=== PATIENT | male | born 1960 | race Caucasian/White ===

== ENCOUNTER 2022-08-02 17:43 | Inpatient (IN) | payer OTHER ==
[~2022-08-02] VITALS: Ht 170.2 cm; Wt 83.7 kg
[~2022-08-02 17:43] MED LIST changes: -ACET325 PO; -HUMALOG JU100 UNIT/2 SC; -INSULANPEN; -MESA250ER PO; -Norco 5-325 Ta1 EACH PO; -OMEGA-3-FISH O1 EAC3 PO; -OMEP20ER PO
[2022-08-02] MEDS ORDERED: INSULANPEN (18:02)
[2022-08-02 18:37] LABS: Base Excess Venous -14.3 mmol/L; Bicarbonate Venous 14.4 mmol/L (24.0-30.0); PCO2 Venous 32.2 mmHg (38-42)
[2022-08-02 18:40] LABS: pH Blood Venous 7.23 (7.34-7.37)
[2022-08-02 20:10] LABS: Potassium, Blood 4.4 mmol/L (3.5-5.5)
[2022-08-02 20:11] LABS: Albumin, Blood 3.1 g/dL (3.4-5.0); Albumin/Globulin Ratio 0.8 (0.8-1.8); Bilirubin, Total 0.3 mg/dL (0.1-1.0); Bun/Creatinine Ratio 20.5 (12.0-20.0); Calcium, Blood 8.4 mg/dL (8.5-10.1); Creatinine, Blood 0.73 mg/dL (0.60-1.20); Globulin, Blood 3.9 g/dL (2.2-4.0)
[2022-08-02 20:16] LABS: Beta-hydroxybutyrate 51.5 mg/dL (0.2-2.8)
[2022-08-02] MEDS ORDERED: OMEP20ER PO (22:22)
[2022-08-02] MEDS ORDERED: MESA250ER PO (22:24)
[2022-08-03 00:46] LABS: BASOPHILS ABSOLUTE AUTO 0.04 K/mm3 (0.00-0.23); BASOPHILS PERCENT AUTO 1 % (0-2); EOSINOPHILS ABSOLUTE AUTO 0.11 K/mm3 (0.00-0.68); EOSINOPHILS PERCENT AUTO 2 % (0-6); Hemoglobin 12.5 g/dL (13.5-17.5); IMMATURE GRAN ABSOLUTE AUTO 0.09 K/mm3 (0.00-0.10); IMMATURE GRAN PERCENT AUTO 2 % (0-1); LYMPHOCYTES ABSOLUTE AUTO 1.23 K/mm3 (0.84-5.20); LYMPHOCYTES PERCENT AUTO 23 % (21-46); MONOCYTES ABSOLUTE AUTO 0.32 K/mm3 (0.16-1.47); MONOCYTES PERCENT AUTO 6 % (4-13); Mean Corpuscular HGB 29.5 pg (26.0-34.0); Mean Corpuscular HGB Conc 34.7 g/dL (31.5-36.5); Mean Corpuscular Volume 85 fL (80-100); Mean Platelet Volume 10.7 fL (9.1-12.4); NEUTROPHILS ABSOLUTE AUTO 3.56 K/mm3 (1.96-9.15); NEUTROPHILS PERCENT AUTO 67 % (41-73); Platelet Count 236 K/mm3 (150-400); Red Blood Cell Count 4.24 M/mm3 (4.30-5.90); White Blood Cell Count 5.35 K/mm3 (4.00-11.30)
[2022-08-03 00:57] LABS: Triglycerides >4000 mg/dL (30-160); Very Low Density Lipoprot Chol Unable to Calculate mg/dL (6-32)
[2022-08-03 01:21] LABS: Alanine Aminotransfer (ALT/SGP 29 U/L (12-78); Albumin, Blood 2.8 g/dL (3.4-5.0); Albumin/Globulin Ratio 0.8 (0.8-1.8); Alk Phos 110 U/L (50-136); Anion Gap 14 mmol/L (6-16); Aspartate Aminotrans (AST/SGOT 12 U/L (12-37); Bilirubin, Total 0.2 mg/dL (0.1-1.0); Blood Urea Nitrogen 16 mg/dL (8-24); Bun/Creatinine Ratio 21.7 (12.0-20.0); CHOL/HDL RATIO 10.9; CO2, Blood 12 mmol/L (21-32); Calcium, Blood 8.3 mg/dL (8.5-10.1); Chloride, Blood 106 mmol/L (98-108); Cholesterol 456 mg/dL (50-200); Creatinine, Blood 0.74 mg/dL (0.60-1.20); Globulin, Blood 3.7 g/dL (2.2-4.0); Glomerular Filtration Rate 104 (60-); Glucose, Blood 367 mg/dL (70-99); LDL/HDL RATIO Unable to Calculate; Potassium, Blood 4.5 mmol/L (3.5-5.5); Sodium, Blood 132 mmol/L (136-145); Total Protein, Blood 6.5 g/dL (6.4-8.2)
[2022-08-03 01:22] LABS: Low Density Lipoprotein Chol 205 mg/dL (0-110)
[2022-08-03 02:26] LABS: Source, Urine Clean Catch
[2022-08-03 02:29] LABS: Bilirubin, Urine Neg (Neg); Blood, Urine 1+ (Neg); Glucose Qualitative, Urine 4+ (Neg); Ketones, Urine 4+ (Neg); Leukocyte Esterase, Urine Neg (Neg); Nitrite, Urine Neg (Neg); Protein, Urine Neg (Neg); Urobilinogen, Urine NORM (Normal)
[2022-08-03 02:34] LABS: Appearance, Urine Clear (Clear); Color, Urine Yellow (P-Yellow)
[2022-08-03 02:48] LABS: Bacteria Not Seen /hpf; Squamous Epithelial Cells Not Seen /hpf (Few); White Blood Cells, Urine Not Seen /hpf (0-5)
--- NOTE | 2022-08-03 03:49 | NUR ---
RECIEVED PATIENT FROM THE ED, ALERT AND ORIENTED X4, COOPERATIVE WITH CARE, INDEPENDENT IN ROOM AND CONT. STARTED ON NA BICARB INFFUSION AT 100. ABD PAIN FROM PATIENTS STATES CROHNS FLARE UP TREATED PER AUG. IV INSULIN ORDERED AND PATIENT TRANSFERED TO ER, REPORT GIVEN AND BELONGINGS WITH PATIENT.
[2022-08-03 04:37] LABS: Albumin, Blood 2.8 g/dL (3.4-5.0); Albumin/Globulin Ratio 0.8 (0.8-1.8); Bilirubin, Total 0.3 mg/dL (0.1-1.0); Calcium, Blood 8.4 mg/dL (8.5-10.1); Creatinine, Blood 0.58 mg/dL (0.60-1.20); Globulin, Blood 3.6 g/dL (2.2-4.0); Potassium, Blood 4.3 mmol/L (3.5-5.5); Total Protein, Blood 6.4 g/dL (6.4-8.2)
--- NOTE | 2022-08-03 04:47 | NUR ---
TRANSFER TO ICU 9: PT TRANSFERRED FROM MEDICAL FLOOR TO ICU 9 @ 0343 VIA WHEELCHAIR. PT ABLE TO TRANSFER FROM WHEELCHAIR TO BED INDEPENDENTLY; GAIT STEADY AND EVEN. PT IS A&O, PLEASANT AND COOPERATING WITH CARE. PT ON RA WHEN ARRIVED TO UNIT WITH SPO2 94<. PT ON CONTINUOUS SYSTEMS SOFTWARE SPECIALIST WITH HR 80'S AND SBP 150'S; NO C/O CHEST PAIN OR SOB AT THIS TIME. PT HAS OBESE ABD THAT IS TENDER UPON PALPATION R/T CHROHNS DX, PT STATES THAT PAIN IS COMING DOWN AND STATES 4/10 PAIN; PT MEDICATED WITH MORPHINE PRIOR TO COMING TO UNIT. PTCONTINENT OF VOIDING/ELIMINATION AND PERFORMING ADL'S INDEPENDENTLY. TWO PIV, 22 G RAC AND RFA. INSULIN GTT @ 2 UNITS/HR AND BICARB GTT @ 100 MLS/HR. PPP X 4; SKIN INTACT AND WARM. PT HAS DEFORMED SECOND TOE ON R. FOOT THAT HE STATES IS FROM HIS NEUROPATHY PATHOLOGY. PT SLEEPING NOW, USING CALL LIGHT APPROPRIATELY, BED LOWERED, WILL CONTINUE TO MONITOR.
--- NOTE | 2022-08-03 06:46 | NUR ---
SHIFT SUMMARY: NO ACUTE CHANGES THIS SHIFT. VSS THROUGHOUT THE SHIFT. PT CURRENTLY ON INSULIN GTT @ 2 UNITS/HR; PER DR ALEA STEVEN GTT PUT ON STANDBY WITH CBG LESS THAN 200, AND D5 1/2 NS GTT STARTED AT 75 MLS/HR. PROVIDER WANTS CBG TO BE MAINTAINED BETWEEN 200-250. WILL CONTINUE TO MONITOR UNTIL ONCOMING RN ARRIVES.
--- NOTE | 2022-08-03 07:15 | NUR ---
Assumed care of ICU status patient at 0700. Report received from Lexus IZQUIERDO. Pt is A&O x 4. Answers questions, follows commands, verbalizes needs. Pleasant and cooperative with care. On insulin drip at 2 units/hr for hypertryglyceridemia. SR per monitor. BP stable. Room air.
--- NOTE | 2022-08-03 09:30 | NUR ---
Dr Quintero in to see patient. Discussed that pt is experiencing intolerable pain with current regimen of morphine. Changed from Q6 availability to Q4 availability. Plan to check additional tryglyceride levels with ordered BMPs.
[2022-08-03 11:25] LABS: Anion Gap 8 mmol/L (6-16); Blood Urea Nitrogen 11 mg/dL (8-24); Bun/Creatinine Ratio 19.2 (12.0-20.0); CO2, Blood 21 mmol/L (21-32); Calcium, Blood 8.6 mg/dL (8.5-10.1); Chloride, Blood 105 mmol/L (98-108); Creatinine, Blood 0.57 mg/dL (0.60-1.20); Glomerular Filtration Rate 112 (60-); Glucose, Blood 260 mg/dL (70-99); Potassium, Blood 3.8 mmol/L (3.5-5.5)
--- NOTE | 2022-08-03 15:30 | NUR ---
Plan of care discussed with Dr Barrera. Pt is experiencing relief and comfort with changed pain med regimen. Discussed most recent labs. Provider states that insulin drip may be continued and subcutaneous insulin will begin. Pt reports taking 20 units of lantus per day. Additional, pt may be transferred to medical floor and telemetry can be removed.
--- NOTE | 2022-08-03 17:39 | NUR ---
SUMMARY Transferred to ICU 3. Pt is medical floor status without telemetry. Neuro/Musc/Psych/Educ: A&O x 4. Answers questions, follows commands, verbalizes needs. Pleasant and cooperative with care. Independent in room. Ambulated from room 9 to room 3 for transfer. No family in to see pt today or inquire about update. Pt states he recently moved here from [place], [place]. Currently lives at the [facility]. Pt is receptive to all education provided. Seems to have better than average health literacy regarding current disease process and medication regimen/care of his chronic conditions. Pain: States he has chronic pain from chrons. This is managed with mesalamine, however he has been having difficulty accessing this medication since he moved to [place] due to insurance restrictions. The pain that he is experiencing reportly started about 1 week ago. He states that he feels the pain is improving compared to when he first came into ER. Reports relief from pain with administration of morphine. Resp: Occasionally requires 2 LPM NC while sleeping. No bradypnea or hypoventilation with administration of morphine. Card: Pt is no longer monitored with telemetry. VSS. No edmea. Cap refill and distal pulses WNL. GI: Guaic ordered. No BM yet this shift. : Excellent urine output into urinal Skin: Unchanged from initial assessment.
[2022-08-03 17:44] LABS: Anion Gap 7 mmol/L (6-16); CO2, Blood 22 mmol/L (21-32); Chloride, Blood 99 mmol/L (98-108); Creatinine, Blood 0.24 mg/dL (0.60-1.20); Glomerular Filtration Rate 146 (60-); Potassium, Blood 3.9 mmol/L (3.5-5.5); Sodium, Blood 128 mmol/L (136-145)
[2022-08-03 17:46] LABS: Glucose, Blood 370 mg/dL (70-99)
[2022-08-03 17:47] LABS: Bun/Creatinine Ratio Unable to Calculate (12.0-20.0)
[2022-08-03 17:48] LABS: Triglycerides >4000 mg/dL (30-160)
--- NOTE | 2022-08-03 18:07 | NUR ---
Lab called this RN to notify that BUN and calcium could not be reported due to severe lipemia in specimen. La from lab also reported that previous triglyceride result of [address] Quintero. Pt transferred back to ICU status and insulin drip to be restarted. Discussed that pt has already received glargine. Plan to start insulin at lowest dose and D5 1/2 NS will start at 100 mL/hr.
[2022-08-03 18:10] LABS: Sodium, Blood 134 mmol/L (136-145)
[2022-08-03 18:14] LABS: Triglycerides >4000 mg/dL (30-160)
--- NOTE | 2022-08-03 19:15 | NUR ---
ASSUMPTION OF CARE ASSUMED CARE OF PATIENT @ 1915. A/0 X4. REPORTS ABDOMINAL PAIN WELL CONTROLLED WITH MORPHINE. 2L NC. HEMODYNAMICALLY STABLE. SR ON MONITOR. INSULIN GTT CURRENTLY INFUSING AT 1U/HR. CALL LIGHT WITHIN REACH.
[2022-08-03 22:21] LABS: Anion Gap 7 mmol/L (6-16); Bun/Creatinine Ratio Unable to Calculate (12.0-20.0); CO2, Blood 21 mmol/L (21-32); Chloride, Blood 103 mmol/L (98-108); Creatinine, Blood <0.14 mg/dL (0.60-1.20); Glucose, Blood 418 mg/dL (70-99); Potassium, Blood 3.3 mmol/L (3.5-5.5); Sodium, Blood 131 mmol/L (136-145); Triglycerides >4000 mg/dL (30-160)
[2022-08-04 04:29] LABS: Anion Gap 5 mmol/L (6-16); CO2, Blood 23 mmol/L (21-32); Chloride, Blood 101 mmol/L (98-108); Creatinine, Blood 1.05 mg/dL (0.60-1.20); Glomerular Filtration Rate 81 (60-); Glucose, Blood 330 mg/dL (70-99); Potassium, Blood 3.9 mmol/L (3.5-5.5); Sodium, Blood 129 mmol/L (136-145)
[2022-08-04 04:30] LABS: Bun/Creatinine Ratio Unable to Calculate (12.0-20.0); Triglycerides >4000 mg/dL (30-160)
--- NOTE | 2022-08-04 06:07 | NUR ---
SHIFT SUMMARY NEURO: INTACT. A/0 X4. COOPERATIVE. PERRL. GRIFFIN. CV: SR, HR 70-80S AT REST. WITH ACTIVITY/UP TO SIDE TO BED, HR 120-130S. SBP 120-150S. AFEBRILE. PULM: 2L NC WHILE SLEEPING. LUNGS CTA. RESPIRATIONS EVEN, UNLABORED. RR 16-20. GI: TOLERATING PO INTAKE. STILL COMPLAINING OF ABDOMINAL PAIN INTERMITTENTLY; CONTROLLED WITH MORPHINE, SEE MAR. + FLATUS. NO BM OVERNIGHT. : POLYURIA. URINE OUTPUT ~7L OVER LAST 24 HOURS. PATIENT CONTINUES ON INSULIN DRIP FOR MANAGEMENT OF ELEVATED TRYGLYCERIDES. LAST TRYGLYCERIDES STILL >4000. DR WINCHESTER CONTACTED OVERNIGHT REGARDING HYPOKALEMIA; REPLACED WITH 40MEQ ORAL K AND 20MEQ IV K. PATIENT RESTING COMFORTABLY AT THIS TIME. CALL LIGHT WITHIN REACH.
--- NOTE | 2022-08-04 08:27 | NUR ---
ASSUMED CARE REPORT FROM SUSAN IZQUIERDO AT 0700. PT RESTING IN BED. A&OX 4. FOLLOWS COMMANDS, ANSWERS QUESTIONS APPROPRIATELY. C/O ABD PAIN, MEDICATED c TYLENOL. LUNGS CLEAR, ON RA. SR ON MONITOR, RATE 80'S. BP STABLE. PT P/W/D. ABD ROUND, SOFT, GENERALIZED TENDERNESS, BTX 4. LARGE APPETITE. DENIES N/V/D. INDEPENDENT IN ROOM. INSULIN GTT AND D5 1/2NS INFUSING AT 100 ML/HR. SHORT AND LONG ACTING INSULIN GIVEN. CBG TRENDING IN 200'S. PIV X 2. WILL CONTINUE TO MONITOR.
[2022-08-04 11:10] LABS: Anion Gap 5 mmol/L (6-16); Bun/Creatinine Ratio Unable to Calculate (12.0-20.0); CO2, Blood 24 mmol/L (21-32); Chloride, Blood 100 mmol/L (98-108); Creatinine, Blood 0.38 mg/dL (0.60-1.20); Glomerular Filtration Rate 127 (60-); Glucose, Blood 401 mg/dL (70-99); Potassium, Blood 3.9 mmol/L (3.5-5.5); Sodium, Blood 129 mmol/L (136-145); Triglycerides 3806 mg/dL (30-160)
[2022-08-04 12:42] LABS: Percent Saturation 42.6 % (20.0-50.0)
[2022-08-04 17:26] LABS: Anion Gap 4 mmol/L (6-16); Bun/Creatinine Ratio Unable to Calculate (12.0-20.0); CO2, Blood 26 mmol/L (21-32); Chloride, Blood 99 mmol/L (98-108); Glomerular Filtration Rate 136 (60-); Glucose, Blood 305 mg/dL (70-99); Potassium, Blood 3.8 mmol/L (3.5-5.5); Sodium, Blood 129 mmol/L (136-145)
[2022-08-04 17:27] LABS: Triglycerides >4000 mg/dL (30-160)
--- NOTE | 2022-08-04 17:44 | NUR ---
SHIFT SUMMARY NO ACUTE CHANGES THIS SHIFT. REMAINS ON INSULIN GTT. IVF CHANGED TO D5 NS, INFUSING AT 100 ML/HR. CONTINUED q6 BMP AND TRIGLYCERIDES. NEURO WNL. LUNGS CLEAR. SR, RATE 80'S. BP STABLE. LARGE APPETITE, ENCOURAGED HEALTHY CHOICES. INDEPENDENT IN ROOM. USES URINAL AT BEDSIDE. WILL CONTINUE TO MONITOR UNTIL REPORT TO ONCOMING NURSE.
--- NOTE | 2022-08-04 19:20 | NUR ---
ASSUMED CARE OF PT AT 1900 PT SLEEPING IN ROOM AT THIS TIME WITH NO VISITORS. PT IS ABLE TO GET UP TO USE URINAL AT BEDSIDE ALONE. BED IN LOW POSITION, CALL LIGHT WITHIN REACH. INSULIN @ 3 UNITS/HR D5WNS @ 100 MLS/HR BP AND HR STABLE AND WNL. SPO2 >92% ON 2LMP NC. SEE FULL ASSESSMENT FOR FURTHER INFORMATION.
[2022-08-04 23:08] LABS: Anion Gap 4 mmol/L (6-16); CO2, Blood 24 mmol/L (21-32); Chloride, Blood 101 mmol/L (98-108); Creatinine, Blood 0.27 mg/dL (0.60-1.20); Glomerular Filtration Rate 141 (60-); Glucose, Blood 397 mg/dL (70-99); Sodium, Blood 129 mmol/L (136-145)
[2022-08-04 23:09] LABS: Bun/Creatinine Ratio Unable to Calculate (12.0-20.0)
[2022-08-04 23:11] LABS: Triglycerides >4000 mg/dL (30-160)
[2022-08-05 04:53] LABS: Anion Gap 4 mmol/L (6-16); Blood Urea Nitrogen 11 mg/dL (8-24); Bun/Creatinine Ratio 36.2 (12.0-20.0); CO2, Blood 23 mmol/L (21-32); Chloride, Blood 105 mmol/L (98-108); Glomerular Filtration Rate 136 (60-); Glucose, Blood 293 mg/dL (70-99); Sodium, Blood 132 mmol/L (136-145); Triglycerides 3535 mg/dL (30-160)
[2022-08-05 04:58] LABS: Potassium, Blood 3.8 mmol/L (3.5-5.5)
--- NOTE | 2022-08-05 05:51 | NUR ---
END OF SHIFT SUMMARY PT RESTED INTERMITENTLY THROUGHOUT THE NIGHT. A/O X4. C/O HEADACHE, PRN TYLENOL SUFFICIENT. C/O STOMACH PAIN, PRN MORPHINE SUFFICIENT. RESP- 2LMP NC FOR PT COMFORT WITH CONSISTENT 95% SPO2. LUNG SOUNDS CLEAR BILATERALLY THROUGHOUT. CARDIAC- SR, SBP 130'S, HR 80'S. GI, - NO BM THIS SHIFT. PT FREQUENTLY STANDS AT BEDSIDE WITH URINAL THROUGHOUT THE NIGHT. SIGNIFICANT OUTPUT NOTED IN I/O NOTATIONS. PT INSISTS ON DRINKING DIET SODA. WATER AT BEDSIDE HAS NOT BEEN TOUCHED THIS SHIFT. PT WAS EDUCATED ON FOODS THAT HE WAS REQUESTING TO BE HIGH IN FAT, REGARDLESS OF SUGAR CONTENT. PT SHOWS UNDERSTANDING WITH COMMUNICATION WITH THIS RN. INSULIN DRIP AT 1 UNIT D5WNS @ 100 MLS/HR TKO @ 10 MLS/HR. CONSULT TO CDA TEACHER INITIATED D/T THE PATIENTS STRESS OF PROPER HOUSING AND FOOD SOURCES, ALONG WITH SAFE KEEPING OF IMPORTANT MEDICATIONS. PT STATES THAT HE IS ON A HOUSING WAIT LIST AND IS TO BE RECIEVED SOCIAL SECURITY BENEFITS SOON. PT IS ALSO REQUESTING TO STAY AT THE HOSPITAL UNTIL SAFE HOUSING CAN BE PROVIDED. THIS RN COUNSELED THE PT ON CDA TEACHER PROVIDING INFORMATION ON COMMUNITY SERVICES AND SHOULD BE IN BEFORE DISCHARGE TO DISCUSS OPTIONS AND RESOURCES AVAILABLE. WILL CONTINUE TO MONITOR PT UNTIL REPORT GIVEN TO AM RN.
--- NOTE | 2022-08-05 09:15 | NUR ---
ASSUMED CARE / DR BREWER: REPORT RECEIVED FROM STUART Meraz RN. ASSUMED CARE OF THIS PT AT APPROX 0700. ON ASSESSMENT, THE PT IS RESTING QUIETLY & AWAKENS EASILY TO VERBAL STIMULUS. HE IS A&O TO ALL, STS HAVING CHRONIC CRAMPING PAIN IN HIS STOMACH R/T CROHN's DX. LS DIM, RESPIRATIONS SHALLOW. PT ON 2L NC W/ O2 SATS > 92%. MONITOR SHOWS SR W/ HR 60-70s, BP STABLE. ABD MILDLY DISTENDED, PT STS NORMAL. VOIDS URINE W/O DIFFICULTY USING URINAL. SKIN CONDITION OVERALL INTACT, PT REPOSITIONS SELF FOR COMFORT PRN. DR BREWER AT BEDSIDE THIS AM TO EVAL PT. SHE WOULD LIKE TO DISCHARGE THE PT THIS AFTERNOON IF BARRIERS TO RECEIVING MEDICATION THROUGH INSURANCE CAN BE APPROPRIATELY DEALT WITH. ALEJANDRO, SUPERVISING DEPUTY RN, HAS SPOKEN W/ THE PT & PROVIDER & IS ATTEMPTING TO FACILITATE THE PT RECEIVING HIS MEDICATIONS. PROVIDER ORDERS THAT INSULIN DRIP & D5NS BE DISCONTINUED, CONTINUE CBG COVERAGE W/ LISPRO & LANTUS. TRANSFER ORDERS PLACED, PT IS NOW MEDICAL STATUS, NO TELE. PO PAIN MEDICATIONS ORDERED & IV PAIN MEDS SHOULD BE AVOIDED W/ GOAL OF DISCHARGING PT BACK [facility]. NO OTHER CHANGES AT THIS TIME. WILL CONTINUE TO MONITOR & UPDATE NEEDED.
--- NOTE | 2022-08-05 11:31 | NUR ---
TRANSFER TO MEDICAL FLOOR: REPORT HAS BEEN GIVEN TO ELENA Deshpande RN ON MED FLOOR TO ASSUME CARE. THE PT HAS BEEN TAKEN TO ROOM 338 VIA WC BY WINSTON BAUTISTA, AT APPROX 1130. CHART, MEDS & ALL BELONGINGS HAVE BEEN TAKEN UP W/ PT AT THIS TIME.
[2022-08-05 11:45] LABS: Anion Gap 4 mmol/L (6-16); Blood Urea Nitrogen 9 mg/dL (8-24); Bun/Creatinine Ratio 25.8 (12.0-20.0); CO2, Blood 25 mmol/L (21-32); Chloride, Blood 102 mmol/L (98-108); Creatinine, Blood 0.35 mg/dL (0.60-1.20); Glomerular Filtration Rate 130 (60-); Glucose, Blood 431 mg/dL (70-99); Sodium, Blood 131 mmol/L (136-145); Triglycerides 2969 mg/dL (30-160)
--- NOTE | 2022-08-05 11:51 | NUR ---
TRANSFER NOTE PT TRANSFERRED FROM THE ICU. REPORT RECEIVED FROM TIMBO JAY.
[2022-08-05] MEDS ORDERED: ACET325 PO (13:54)
[2022-08-05] MEDS ORDERED: Norco 5-325 Ta1 EACH PO (13:57)
[2022-08-05] MEDS ORDERED: HUMALOG JU100 UNIT/2 SC (13:58)
[2022-08-05] MEDS ORDERED: OMEGA-3-FISH O1 EAC3 PO (14:08)
--- NOTE | 2022-08-05 15:10 | NUR ---
DISCHARGE NOTE PT LEFT FOR HOME BY [facility], TAKEN TO THE [facility] BY WHEELCHAIR. BOTH IV'S REMOVED. PT PROVIDED DISCHARGE INFORMATION AND EDUCATION. MEDICATIONS FAXED TO THE PHARMACY OF HIS CHOICE. PERSONAL BELONGINGS WERE RETURNED.
== END 2022-08-05 15:28 | disposition home or self-care (01) | DRG 385 ==
LOC: ER 17:43 → ICUE 17:44 → MEDS 17:44 → ICUW 08-03 03:39 → ICUE 08-03 12:23 → MEDS 08-05 11:29
PROVIDERS: Emergency Medicine; Internal Medicine; ADMIT Internal Medicine
DX: K50.90 Crohn's disease, unspecified, without complications (principal); E10.10 Type 1 diabetes mellitus with ketoacidosis without coma; E87.1 Hypo-osmolality and hyponatremia; E86.0 Dehydration; E78.00 Pure hypercholesterolemia, unspecified; K21.9 Gastro-esophageal reflux disease without esophagitis; E78.1 Pure hyperglyceridemia; E10.65 Type 1 diabetes mellitus with hyperglycemia; D64.9 Anemia, unspecified; J45.909 Unspecified asthma, uncomplicated; Z98.890 Other specified postprocedural states; Z88.5 Allergy status to narcotic agent; Z79.4 Long term (current) use of insulin; Z59.00 Homelessness unspecified; Z91.038 Other insect allergy status; Z87.891 Personal history of nicotine dependence; Z79.899 Other long term (current) drug therapy
CPT/HCPCS: 36415; 80048; 80053; 80061; 81001; 82010; 82607; 82728; 82746; 82803; 82947; 83540; 83550; 83690; 83880; 84478; 85025; 94762; 96374; 99285-25; A9270; J1650; J1815; J1885; J2270; J2405; J3010; J3480; J7030; J7042; J7050

== ENCOUNTER → 2022-08-02 | Outpatient (CLI) | payer OTHER ==
[~2022-08-02] MED LIST: ACET325 PO; HUMALOG JU100 UNIT/2 SC; INSULANPEN; MESA250ER PO; METF500 PO; Norco 5-325 Ta1 EACH PO; OMEGA-3-FISH O1 EAC3 PO; OMEP20ER PO; OMEP40CA12 PO
[2022-08-02 13:26] LABS: Albumin, Blood 3.6 g/dL (3.4-5.0); Albumin/Globulin Ratio 0.8 (0.8-1.8); Bilirubin, Total 0.4 mg/dL (0.1-1.0); Bun/Creatinine Ratio 20.1 (12.0-20.0); Calcium, Blood 9.2 mg/dL (8.5-10.1); Creatinine, Blood 0.8 mg/dL (0.60-1.20); Globulin, Blood 4.8 g/dL (2.2-4.0); Potassium, Blood 4.2 mmol/L (3.5-5.5); Total Protein, Blood 8.4 g/dL (6.4-8.2)
[2022-08-02 14:16] LABS: BASOPHILS ABSOLUTE AUTO 0.05 K/mm3 (0.00-0.23); BASOPHILS PERCENT AUTO 1 % (0-2); EOSINOPHILS PERCENT AUTO 2 % (0-6); Hematocrit 39.5 % (37.0-53.0); Hemoglobin 13.2 g/dL (13.5-17.5); Mean Corpuscular HGB 28.5 pg (26.0-34.0); Mean Corpuscular HGB Conc 33.4 g/dL (31.5-36.5); Mean Corpuscular Volume 85 fL (80-100); Mean Platelet Volume 11.6 fL (9.1-12.4); NRBC ABSOLUTE 0.05 K/mm3 (0.00-0.02); NRBC Auto 0.7 /100 WBC (0.0-0.2); RDW Coefficient Variation 16.2 % (11.7-14.2); RDW Standard Deviation 50.5 fL (35.1-46.3); Red Blood Cell Count 4.63 M/mm3 (4.30-5.90); White Blood Cell Count 6.85 K/mm3 (4.00-11.30)
[2022-08-02 14:20] LABS: IMMATURE GRAN ABSOLUTE AUTO 0.13 K/mm3 (0.00-0.10); IMMATURE GRAN PERCENT AUTO 2 % (0-1); LYMPHOCYTES ABSOLUTE AUTO 1.38 K/mm3 (0.84-5.20); LYMPHOCYTES PERCENT AUTO 20 % (21-46); MONOCYTES ABSOLUTE AUTO 0.43 K/mm3 (0.16-1.47); MONOCYTES PERCENT AUTO 6 % (4-13); NEUTROPHILS ABSOLUTE AUTO 4.76 K/mm3 (1.96-9.15); NEUTROPHILS PERCENT AUTO 70 % (41-73)
[2022-08-02 14:22] LABS: Platelet Count 357 K/mm3 (150-400)
== END | disposition home or self-care (01) ==
LOC: LAB SHORT 12:09 → LAB 12:09
PROVIDERS: Physician Assistant
DX: R10.84 Generalized abdominal pain (principal)
CPT/HCPCS: 80053; 83690; 85025

== ENCOUNTER 2022-08-08 10:07 | Emergency (ER) | payer OTHER ==
[~2022-08-08] VITALS: Ht 172.7 cm; Wt 86.2 kg
[~2022-08-08 10:07] MED LIST changes: +ACET325 PO; +HUMALOG JU100 UNIT/2 SC; +INSULANPEN; +MESA250ER PO; +Norco 5-325 Ta1 EACH PO; +OMEGA-3-FISH O1 EAC3 PO; +OMEP20ER PO
[2022-08-08 10:46] LABS: BASOPHILS ABSOLUTE AUTO 0.05 K/mm3 (0.00-0.23); BASOPHILS PERCENT AUTO 1 % (0-2); EOSINOPHILS ABSOLUTE AUTO 0.09 K/mm3 (0.00-0.68); EOSINOPHILS PERCENT AUTO 1 % (0-6); Hematocrit 37.8 % (37.0-53.0); Hemoglobin 13.6 g/dL (13.5-17.5); IMMATURE GRAN ABSOLUTE AUTO 0.09 K/mm3 (0.00-0.10); IMMATURE GRAN PERCENT AUTO 1 % (0-1); LYMPHOCYTES PERCENT AUTO 19 % (21-46); MONOCYTES ABSOLUTE AUTO 0.54 K/mm3 (0.16-1.47); MONOCYTES PERCENT AUTO 7 % (4-13); Mean Corpuscular HGB 29.8 pg (26.0-34.0); Mean Corpuscular Volume 83 fL (80-100); Mean Platelet Volume 10.2 fL (9.1-12.4); NEUTROPHILS PERCENT AUTO 71 % (41-73); Platelet Count 349 K/mm3 (150-400); RDW Coefficient Variation 15.8 % (11.7-14.2); RDW Standard Deviation 47.6 fL (35.1-46.3); Red Blood Cell Count 4.57 M/mm3 (4.30-5.90); White Blood Cell Count 7.47 K/mm3 (4.00-11.30)
[2022-08-08 11:18] LABS: Albumin, Blood 2.9 g/dL (3.4-5.0); Alk Phos 113 U/L (50-136); Anion Gap 8 mmol/L (6-16); Bilirubin, Total 0.7 mg/dL (0.1-1.0); Blood Urea Nitrogen 20 mg/dL (8-24); Bun/Creatinine Ratio 44.3 (12.0-20.0); CO2, Blood 23 mmol/L (21-32); Chloride, Blood 97 mmol/L (98-108); Creatinine, Blood 0.45 mg/dL (0.60-1.20); Glomerular Filtration Rate 121 (60-); Glucose, Blood 556 mg/dL (70-99); Sodium, Blood 128 mmol/L (136-145)
[2022-08-08 11:19] LABS: Albumin/Globulin Ratio Unable to Calculate (0.8-1.8); Globulin, Blood Unable to Calculate g/dL (2.2-4.0); Potassium, Blood 4.6 mmol/L (3.5-5.5)
[2022-08-08 13:36] LABS: Base Excess Venous -0.8 mmol/L; Bicarbonate Venous 23.7 mmol/L (24.0-30.0); PCO2 Venous 40.5 mmHg (38-42); pH Blood Venous 7.39 (7.34-7.37)
[2022-08-08 14:28] LABS: Source, Urine Clean Catch
[2022-08-08 15:02] LABS: Appearance, Urine Clear (Clear); Bilirubin, Urine Neg (Neg); Blood, Urine Neg (Neg); Color, Urine Yellow (P-Yellow); Glucose Qualitative, Urine 4+ (Neg); Ketones, Urine 2+ (Neg); Leukocyte Esterase, Urine Neg (Neg); Nitrite, Urine Neg (Neg); Protein, Urine Neg (Neg); Urobilinogen, Urine NORM (Normal)
== END 2022-08-08 17:30 | disposition home or self-care (01) ==
LOC: ER 10:07
PROVIDERS: Physician Assistant
DX: E11.65 Type 2 diabetes mellitus with hyperglycemia (principal); K50.90 Crohn's disease, unspecified, without complications; Z91.14 Patient's other noncompliance with medication regimen; J45.909 Unspecified asthma, uncomplicated; Z79.4 Long term (current) use of insulin; Z88.5 Allergy status to narcotic agent; Z91.038 Other insect allergy status; Z87.891 Personal history of nicotine dependence
CPT/HCPCS: 36415; 80053; 81003; 82010; 82803; 82947; 83690; 85025; 96361; 96374; 99283-25; A9270; J1815; J1885; J7030

== ENCOUNTER → 2022-09-23 | Outpatient (CLI) | payer OTHER | END | disposition home or self-care (01) | LOC: LAB SHORT 15:13 → LAB 15:13 | DX: L02.01 Cutaneous abscess of face (principal) | CPT/HCPCS: 87070; 87075; 87205 ==

== ENCOUNTER → 2023-02-26 | Outpatient (CLI) | payer OTHER ==
[2023-02-26 15:22] LABS: Bun/Creatinine Ratio 35.3 (12.0-20.0); Calcium, Blood 9.6 mg/dL (8.5-10.1); Creatinine, Blood 0.85 mg/dL (0.60-1.20); Potassium, Blood 4.1 mmol/L (3.5-5.5)
== END | disposition home or self-care (01) ==
LOC: LAB SHORT 14:06 → LAB 14:06
PROVIDERS: Family Medicine
DX: E11.69 Type 2 diabetes mellitus with other specified complication (principal)
CPT/HCPCS: 80048

== ENCOUNTER → 2023-05-06 | Outpatient (CLI) | payer OTHER | END | disposition home or self-care (01) | LOC: LAB 10:57 → LAB SHORT 10:57 | DX: L02.211 Cutaneous abscess of abdominal wall (principal) | CPT/HCPCS: 87070; 87075; 87077; 87147; 87186; 87205 ==

== ENCOUNTER → 2023-07-29 | Outpatient (CLI) | payer OTHER | LOC: LAB 15:12 → LAB SHORT 15:12 | DX: L02.411 Cutaneous abscess of right axilla (principal) | CPT/HCPCS: 87070; 87075; 87077; 87147; 87186; 87205 ==

== ENCOUNTER 2023-12-06 11:49 | Inpatient (IN) | payer OTHER ==
[2023-12-06] VITALS (30 sets, daily range): BP systolic 141–179; BP diastolic 71–127
[~2023-12-06] VITALS: Ht 170.2 cm; Wt 126.2 kg
[~2023-12-06 11:49] MED LIST changes: -INSULANPEN; +INSULANPEN SC
[2023-12-06 13:23] LABS: BASOPHILS ABSOLUTE AUTO 0.04 K/mm3 (0.00-0.23); BASOPHILS PERCENT AUTO 0 % (0-2); RDW Coefficient Variation 14.6 % (11.7-14.2)
[2023-12-06] MEDS ORDERED: NS 1,000 ML IV SCH ×2 (13:30→15:00)
[2023-12-06] MEDS ORDERED: Ondansetron HCl 2 MG / ML 2ML Vial IV ONE (13:30)
[2023-12-06] MEDS ORDERED: Famotidine 10 MG/ML 2ML Vial IV ONE (13:30)
[2023-12-06 13:31] LABS: EOSINOPHILS ABSOLUTE AUTO 0.03 K/mm3 (0.00-0.68); EOSINOPHILS PERCENT AUTO 0 % (0-6); Hematocrit 40.6 % (37.0-53.0); Hemoglobin 13.7 g/dL (13.5-17.5); IMMATURE GRAN ABSOLUTE AUTO 0.05 K/mm3 (0.00-0.10); IMMATURE GRAN PERCENT AUTO 1 % (0-1); LYMPHOCYTES ABSOLUTE AUTO 0.59 K/mm3 (0.84-5.20); LYMPHOCYTES PERCENT AUTO 7 % (21-46); MONOCYTES ABSOLUTE AUTO 0.84 K/mm3 (0.16-1.47); MONOCYTES PERCENT AUTO 9 % (4-13); Mean Corpuscular HGB 28.3 pg (26.0-34.0); Mean Corpuscular HGB Conc 33.7 g/dL (31.5-36.5); Mean Corpuscular Volume 84 fL (80-100); NEUTROPHILS ABSOLUTE AUTO 7.57 K/mm3 (1.96-9.15); NEUTROPHILS PERCENT AUTO 83 % (41-73); Red Blood Cell Count 4.84 M/mm3 (4.30-5.90); White Blood Cell Count 9.12 K/mm3 (4.00-11.30)
[2023-12-06 13:43] LABS: Albumin, Blood 2.6 g/dL (3.4-5.0); Albumin/Globulin Ratio 0.5 (0.8-1.8); Bilirubin, Total 0.6 mg/dL (0.1-1.0); Bun/Creatinine Ratio 22.6 (12.0-20.0); Calcium, Blood 9.6 mg/dL (8.5-10.1); Creatinine, Blood 0.71 mg/dL (0.60-1.20); Globulin, Blood 5.4 g/dL (2.2-4.0); Magnesium, Blood 2.1 mg/dL (1.6-2.4); Potassium, Blood 4.3 mmol/L (3.5-5.5)
[2023-12-06] MEDS ORDERED: Insulin Human Regular 100 UNIT in NS 100 ML IV SCH (14:10)
[2023-12-06] MEDS ORDERED: Acetaminophen 325 MG TABLET PO PRN (15:00)
[2023-12-06 15:55] LABS: Base Excess Venous -11.3 mmol/L; Bicarbonate Venous 16.8 mmol/L (24.0-30.0); PCO2 Venous 26.4 mmHg (38-42); pH Blood Venous 7.34 (7.34-7.37)
[2023-12-06 16:30] LABS: Source, Urine Clean Catch
[2023-12-06] MEDS ORDERED: FentaNYL Citrate 50 MCG/ML 2 ML Injection IV PRN (16:30)
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
[2023-12-06 16:34] LABS: Bilirubin, Urine Neg (Neg); Blood, Urine 2+ (Neg); Glucose Qualitative, Urine 4+ (Neg); Ketones, Urine 4+ (Neg); Leukocyte Esterase, Urine Neg (Neg); Nitrite, Urine Neg (Neg); Protein, Urine 3+ (Neg); Specific Gravity, Urine 1.015 (1.003-1.022); Urobilinogen, Urine NORM (Normal)
[2023-12-06 17:01] LABS: Color, Urine Pale Yellow (P-Yellow)
[2023-12-06 17:02] LABS: Amorphous Light (0-Heavy); Appearance, Urine Hazy (Clear); Bacteria Mod /hpf; Mucus Light (0-Heavy); Red Blood Cells, Urine 0-2 /hpf (0-2); Squamous Epithelial Cells Rare /hpf (Few); White Blood Cells, Urine 0-2 /hpf (0-5)
[2023-12-06 17:30] LABS: Anion Gap 17 mmol/L (3-11); Blood Urea Nitrogen 11 mg/dL (8-24); Bun/Creatinine Ratio 18.3 (12.0-20.0); C-REACTIVE PROTEIN, EXT RANGE >19.000 mg/dL (0.000-0.300); CO2, Blood 15 mmol/L (21-32); Calcium, Blood 8.4 mg/dL (8.5-10.1); Chloride, Blood 102 mmol/L (98-108); Glomerular Filtration Rate 110 (60-); Glucose, Blood 196 mg/dL (70-99); Potassium, Blood 3.6 mmol/L (3.5-5.5); Sodium, Blood 130 mmol/L (136-145)
[2023-12-06] MEDS ORDERED: MELO7.5 PO (17:36)
[2023-12-06] MEDS ORDERED: TIZANIDINE HCL213 PO (17:37)
[2023-12-06 17:45] LABS: U Amphetamine Screen Not Detected; U Barbituate Screen Not Detected; U Benzodiazapine Screen Not Detected; U Buprenorphine Screen Not Detected; U Cannabinoids Screen DETECTED; U Cocaine Screen Not Detected; U Methadone Screen Not Detected; U Methamphetamine Screen Not Detected; U Opiates Screen Not Detected; U Oxycodone Screen Not Detected; U Phencyclidine Screen Not Detected
[2023-12-06] MEDS ORDERED: D5W-1/2NS 1,000 ML IV SCH (17:55)
[2023-12-06] MEDS ORDERED: Potassium Chloride 40 MEQ in NS 250 ML IV STA (17:57)
[2023-12-06] MEDS ORDERED: Mesalamine 400 MG CAP.DRTAB. PO SCH (18:00)
--- NOTE | 2023-12-06 21:20 | NUR ---
ASSUMED CARE ASSUMED CARE AT 1900. PT A/O X 4. C/O PAIN IN RIGHT SHOULDER. REFUSES TYLENOL, STATES "I'VE TAKEN 300 OF THEM IN THE LAST MONTH. THEY DON'T WORK". PT ALSO STATES "FENTANYL DOESN'T WORK, BUT I'LL TAKE SOME". MEDICATED PER EMAR. ON REASSESSMENT PT SLEEPING. INSULIN, KCL AND D5 1/2 NS GTT INFUSING. SEE FLOWSHEET FOR TITRATIONS. PT C/O KCL BURNING AND RATE SLOWED TO HALF WITH RELIEF EXPRESSED. PT USING URINAL IN BED.
[2023-12-06] MEDS ORDERED: DiphenhydrAMINE HCL 25 MG Cap PO ONE (21:50)
[2023-12-06 21:55] LABS: Bun/Creatinine Ratio 13.5 (12.0-20.0); Calcium, Blood 8.3 mg/dL (8.5-10.1); Creatinine, Blood 0.59 mg/dL (0.60-1.20); Potassium, Blood 4.3 mmol/L (3.5-5.5)
[2023-12-06] MEDS ORDERED: Naproxen 250 MG TAB PO PRN (23:05)
[2023-12-07] VITALS (37 sets, daily range): BP systolic 127–194; BP diastolic 63–125
[2023-12-07 01:32] LABS: Bun/Creatinine Ratio 9.3 (12.0-20.0); Calcium, Blood 8.3 mg/dL (8.5-10.1); Creatinine, Blood 0.54 mg/dL (0.60-1.20); Potassium, Blood 4.3 mmol/L (3.5-5.5)
[2023-12-07] MEDS ORDERED: HydrALAZINE HCl 20 MG / ML 1ML Vial IV PRN (04:45)
[2023-12-07 04:58] LABS: BASOPHILS ABSOLUTE AUTO 0.04 K/mm3 (0.00-0.23); BASOPHILS PERCENT AUTO 1 % (0-2); EOSINOPHILS ABSOLUTE AUTO 0.02 K/mm3 (0.00-0.68); EOSINOPHILS PERCENT AUTO 0 % (0-6); Hematocrit 34.6 % (37.0-53.0); Hemoglobin 11.5 g/dL (13.5-17.5); IMMATURE GRAN ABSOLUTE AUTO 0.03 K/mm3 (0.00-0.10); IMMATURE GRAN PERCENT AUTO 0 % (0-1); LYMPHOCYTES ABSOLUTE AUTO 0.62 K/mm3 (0.84-5.20); LYMPHOCYTES PERCENT AUTO 9 % (21-46); MONOCYTES ABSOLUTE AUTO 0.67 K/mm3 (0.16-1.47); MONOCYTES PERCENT AUTO 10 % (4-13); Mean Corpuscular HGB 28.2 pg (26.0-34.0); Mean Corpuscular HGB Conc 33.2 g/dL (31.5-36.5); Mean Corpuscular Volume 85 fL (80-100); Mean Platelet Volume 9.3 fL (9.1-12.4); NEUTROPHILS ABSOLUTE AUTO 5.66 K/mm3 (1.96-9.15); NEUTROPHILS PERCENT AUTO 80 % (41-73); Platelet Count 168 K/mm3 (150-400); RDW Coefficient Variation 14.6 % (11.7-14.2); RDW Standard Deviation 45.1 fL (35.1-46.3); Red Blood Cell Count 4.08 M/mm3 (4.30-5.90); White Blood Cell Count 7.04 K/mm3 (4.00-11.30)
--- NOTE | 2023-12-07 05:24 | NUR ---
SHIFT SUMMARY NO ACUTE EVENTS T/O NIGHT. PT FOUND HIS MISSING WHITE ENVELOPE WITH MONEY IN IT. PT AGREES TO LOCK IT UP IN SECURITY. $75 DOLLARS COUNTED BY SECURITY AND SLIP IN PTS CHART. PT C/O ABOUT WANTING SOMETHING TO "KNOCK HIM OUT" T/O NIGHT. STATED HE TAKES NYQUIL AT HOME AND PROVIDER NOTIFIED. ORDER FOR 25MG OF BENADRYL. PT STATED "I NEED FOUR OF THOSE". PT EDUCATED ON THE GOAL BEING TO TRY AND HELP HIM FALL ASLEEP AND SAFE DOSAGES OF MEDICATIONS. PT C/O OF NECK, JAW, LEG, HIP, AND SHOULDER PAIN AT DIFFERENT TIMES. MEDICATED WITH FENTANYL WHICH PT STATES HELPS FOR 30-45 MINS. REFUSES TYLENOL. PT REQUESTED ALEVE AND CALL TO HOSP. ORDER RECEIVED. PT STS "I HAVE TAKEN MORPHINE FOR 40 YEARS AND THEY TOOK IT AWAY HERE". ICE PACKS TO RIGHT SHOULDER. VSS. HTN NOTED WHEN PT AWAKE AND MOVING AROUND. VOIDS USING URINAL. HAS URGENCY AT TIMES. WILL REPORT OFF TO ONCOMING RN.
[2023-12-07 05:36] LABS: Albumin, Blood 2.1 g/dL (3.4-5.0); Albumin/Globulin Ratio 0.5 (0.8-1.8); Bilirubin, Total 0.5 mg/dL (0.1-1.0); Bun/Creatinine Ratio 10.5 (12.0-20.0); Calcium, Blood 8.6 mg/dL (8.5-10.1); Creatinine, Blood 0.48 mg/dL (0.60-1.20); Globulin, Blood 4.4 g/dL (2.2-4.0); Potassium, Blood 3.9 mmol/L (3.5-5.5); Total Protein, Blood 6.5 g/dL (6.4-8.2)
[2023-12-07] MEDS ORDERED: Omeprazole 20 MG CapCR PO SCH (06:00)
--- NOTE | 2023-12-07 07:00 | NUR ---
ASSUMPTION OF CARE PT RECEIVING INSULIN 1UNIT/HR AND D5 1/2NS 150ML/HR. HE IS A&OX4. C/O R SHOULDER TO ELBOW PAIN AND HEADACHE. DENIES TYLENOL, REQUESTING ALEVE AND MORPHINE. HE IS ON RA WITH SPO2 >95%. SINUS TACH ON MONITOR WITH RATE IN 110S-120S. HYPERTENSIVE WITH EXCERTION. URINAL AT BEDSIDE. HOSPITALIST ROUNDED THIS AM. PROVIDED CLEAR LIQUID BREAKFAST TRAY. BED IN LOW POSITION, BED CONTROL AND CALL LIGHT WITHIN REACH.
[2023-12-07] MEDS ORDERED: AmLODIPine Besylate 5 MG Tab PO SCH (09:00)
[2023-12-07] MEDS ORDERED: Enoxaparin 40 MG/0.4 ML SYR SC SCH (09:00)
[2023-12-07] MEDS ORDERED: Atorvastatin 10 MG Tab PO SCH (09:00)
[2023-12-07] MEDS ORDERED: Ketorolac Tromethamine 15mg Vial IV PRN (11:00)
[2023-12-07 11:30] LABS: Bun/Creatinine Ratio 9.2 (12.0-20.0); Calcium, Blood 8.6 mg/dL (8.5-10.1); Creatinine, Blood 0.44 mg/dL (0.60-1.20); Potassium, Blood 3.8 mmol/L (3.5-5.5)
--- NOTE | 2023-12-07 13:03 | NUR ---
UPDATE PT CONTINUES TO C/O R ARM PAIN. MEDICATED PER EMAR AND CONTINUES TO REQUEST MORPHINE. PT TAKEN TO MRI. PT BACK IN ROOM. PIV WILNER, RN AT BEDSIDE ATTEMPTING TO PLACE POWERGLIDE.
[2023-12-07] MEDS ORDERED: Amlodipine Bes2.5 MG PO (14:03)
[2023-12-07] MEDS ORDERED: OxyCODONE HCL 5 MG TAB PO PRN (15:25)
[2023-12-07 15:32] LABS: Calcium, Blood 7.9 mg/dL (8.5-10.1); Creatinine, Blood 0.5 mg/dL (0.60-1.20); Potassium, Blood 4.2 mmol/L (3.5-5.5)
[2023-12-07] MEDS ORDERED: D5W-1/2NS 1,000 ML IV SCH (16:55)
--- NOTE | 2023-12-07 18:27 | NUR ---
SHIFT SUMMARY PT RECEIVING INSULIN 3UNITS/HR AND D5 1/2NS 200ML/HR. HE IS A&OX4. IRRITABLE AT TIMES. PT CONTINUES TO HAVE R SHOULDER/ARM PAIN AND HAS BEEN MEDICATED PER EMAR. PT UNABLE TO TOLERATE MRI BUT WAS ABLE TO COMPLETE CT. HE IS ON RA. SINUS TACH ON MONITOR. HE HAS TOLERATED CLEAR LIQUID DIET WELL TODAY. HE HAS VOIDED A FEW TIMES TODAY. BED IN LOW POSITION, CALL LIGHT WITHIN REACH.
[2023-12-07 19:24] LABS: Bun/Creatinine Ratio 5.3 (12.0-20.0); Calcium, Blood 8.2 mg/dL (8.5-10.1); Creatinine, Blood 0.57 mg/dL (0.60-1.20); Potassium, Blood 3.7 mmol/L (3.5-5.5)
--- NOTE | 2023-12-07 20:52 | NUR ---
ASSUMPTION OF CARE ASSUMED CARE OF PT AT 1900, BEDSIDE SHIFT REPORT RECEIVED FROM OBEY RN. PT RESTING IN BED, ALERT AND ORIENTED X4, PT ANSWERS QUESTIONS APPROPRIATELY, FOLLOWS DIRECTION WHEN PROMPTED AND IS ABLE TO MAKE NEEDS KNOWN. PT HAS LIMITED MOBILITY IN HIS RIGHT SHOULDER DUE TO PAIN, MEDICATED PER EMAR, MOVES ALL OTHER EXTREMITIES EQUALLY BILATERALLY. HR 100-120'S SINUS, SBP 160-180'S. PT ON RA, OXYGEN SATURATION >95%. ABDOMEN SOFT, NONTENDER, BOWEL TONES ACTIVE IN ALL FOUR QUADRANTS. PT USES URINAL TO VOID. POWERGLIDE IN PLACE TO ROBBIE, PIV IN PLACE TO RFA. INSULIN INFUSING AT 3UNITS/HR AT TIME OF ASSESMENT, NOW INFUSING AT 5UNITS/HR SEE FLOWSHEET FOR TITRATIONS. D5 1/2 NS INFUSING AT 200MLS/HR. BED IN LOWEST POSITION, CALL LIGHT WITHIN REACH, CARE CONTINUES.
[2023-12-07] MEDS ORDERED: AmLODIPine Besylate 5 MG Tab PO ONE (23:20)
[2023-12-07 23:32] LABS: Calcium, Blood 8.7 mg/dL (8.5-10.1); Creatinine, Blood 0.5 mg/dL (0.60-1.20); Potassium, Blood 3.5 mmol/L (3.5-5.5)
[2023-12-07] MEDS ORDERED: Insulin Glargine-Yfgn 100 Unit/mL 3 ML SYR SC ONE (23:50)
[2023-12-08] VITALS (13 sets, daily range): BP systolic 119–193; BP diastolic 62–95
[2023-12-08 03:57] LABS: BASOPHILS ABSOLUTE AUTO 0.02 K/mm3 (0.00-0.23); BASOPHILS PERCENT AUTO 0 % (0-2); EOSINOPHILS ABSOLUTE AUTO 0.03 K/mm3 (0.00-0.68); EOSINOPHILS PERCENT AUTO 0 % (0-6); Hematocrit 31.4 % (37.0-53.0); Hemoglobin 10.6 g/dL (13.5-17.5); IMMATURE GRAN ABSOLUTE AUTO 0.05 K/mm3 (0.00-0.10); IMMATURE GRAN PERCENT AUTO 1 % (0-1); LYMPHOCYTES ABSOLUTE AUTO 0.55 K/mm3 (0.84-5.20); LYMPHOCYTES PERCENT AUTO 7 % (21-46); MONOCYTES ABSOLUTE AUTO 0.87 K/mm3 (0.16-1.47); MONOCYTES PERCENT AUTO 11 % (4-13); Mean Corpuscular HGB 28.6 pg (26.0-34.0); Mean Corpuscular HGB Conc 33.8 g/dL (31.5-36.5); Mean Corpuscular Volume 85 fL (80-100); Mean Platelet Volume 9.3 fL (9.1-12.4); NEUTROPHILS ABSOLUTE AUTO 6.71 K/mm3 (1.96-9.15); NEUTROPHILS PERCENT AUTO 82 % (41-73); Platelet Count 161 K/mm3 (150-400); RDW Coefficient Variation 14.4 % (11.7-14.2); RDW Standard Deviation 44.9 fL (35.1-46.3); Red Blood Cell Count 3.71 M/mm3 (4.30-5.90); White Blood Cell Count 8.23 K/mm3 (4.00-11.30)
[2023-12-08 04:17] LABS: Albumin/Globulin Ratio 0.5 (0.8-1.8); Bilirubin, Total 0.6 mg/dL (0.1-1.0); Bun/Creatinine Ratio 7.2 (12.0-20.0); Calcium, Blood 8.2 mg/dL (8.5-10.1); Creatinine, Blood 0.56 mg/dL (0.60-1.20); Potassium, Blood 3.4 mmol/L (3.5-5.5)
[2023-12-08] MEDS ORDERED: Potassium Chloride 40 MEQ in NS 250 ML IV ONE (04:30)
[2023-12-08] MEDS ORDERED: Sodium Bicarb 8.4% Inj 100 MEQ in Sodium Chloride 0.45% 1,000 ML IV SCH (04:35)
[2023-12-08] MEDS ORDERED: Gabapentin 300 MG Cap PO SCH ×2 (04:35→14:00)
[2023-12-08] MEDS ORDERED: Insulin Human Lispro 100 Units/ML 3ML Syringe SC ONE (05:40)
--- NOTE | 2023-12-08 06:16 | NUR ---
SHIFT SUMMARY PT RESTING IN BED, ALERT AND ORIENTED X4, PT ANSWERS QUESTIONS APPROPRIATELY, FOLLOW DIRECTION WHEN PROMPTED AND IS ABLE TO MAKE NEEDS KNOWN. PT HAS LIMITED MOBILITY IN RIGHT ARM DUE TO PAIN, MEDICATED PER EMAR. PT HAVING PERSISITENT PAIN THIS SHIFT. PT REQUESTING GABAPENTIN THIS SHIFT, CALL PLACED TO HOSPITALIST REGARDING PT REQUEST, PT DOES TAKE GABAPENTIN AT HOME ACCORDING TO THE MEDICATION CLAIM HISTORY. ORDERS RECEIVED. HR 100-120'S SINUS, SBP 130-190'S, MEDICATED PER EMAR FOR HYPERTENSION. PT ON RA, OXYGEN SATURATION >95%. ABDOMEN SOFT, BOWEL TONES ACTIVE IN ALL FOUR QUADRANTS. PT USES URINAL TO VOID. PIV IN PLACE TO RFA. POWERGLIDE IN PLACE TO ROBBIE INFUSING SODIUM BICARB AT 100MLS/HR. BED IN LOWEST POSITION, CALL LIGHT WITHIN REACH, CARE CONTINUES.
[2023-12-08] MEDS ORDERED: Insulin Human Lispro 100 Units/ML 3ML Syringe SC SCH ×3 (07:30→16:30)
[2023-12-08 07:40] LABS: Bun/Creatinine Ratio 9.4 (12.0-20.0); Calcium, Blood 8.4 mg/dL (8.5-10.1); Creatinine, Blood 0.53 mg/dL (0.60-1.20); Potassium, Blood 4.1 mmol/L (3.5-5.5)
[2023-12-08] MEDS ORDERED: Insulin Glargine-Yfgn 100 Unit/mL 3 ML SYR SC SCH ×2 (09:00→21:00)
[2023-12-08] MEDS ORDERED: TiZANidine HCl 4 MG Tab PO PRN (09:50)
[2023-12-08] MEDS ORDERED: OxyCODONE HCL 5 MG TAB PO PRN (09:55)
--- NOTE | 2023-12-08 10:20 | NUR ---
SHIFT ASSESSMENT ASSUMED CARE OF PT @ 0700. PT A&OX4, SITTING UPRIGHT IN BED. GRIFFIN BUT C/O PAIN TO R SHOULDER, CT SHOWING ARTHRITIS, ICE PACK GIVEN REQUESTED. PT UP TO BEDSIDE CHAIR WITH GAIT BELT, WALKER, AND SBA. PT C/O BEING WEAK AND OFF BALANCE BUT APPEARS QUITE CAPABLE, DISCUSSED WITH HOSPITALIST, PHYSICAL THERAPY ORDERED. PT USING URINAL WITHOUT ASSISTANCE. DKA RESOLVED. CURRENT CONCERN IS RELATED TO HOUSING, PT STATES HE HAS BEEN KICKED OUT OF THE [facility] AND WILL BE ON THE STREETS WHEN DISCHARGED. CASE MNGMNT CONSULT ORDERED. PT NOW MEDICAL c TELE STATUS.
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
[2023-12-08 16:32] LABS: Vancomycin, Trough 15.2 ug/mL (5.0-10.0)
[2023-12-08] MEDS ORDERED: Dose Adjust by Pharmacy XX STA (16:39)
[2023-12-08] MEDS ORDERED: Vancomycin HCL 1,250 MG in NS 250 ML IV SCH ×2 (17:00)
--- NOTE | 2023-12-08 17:22 | NUR ---
SHIFT SUMMARY PT REMAINS A&OX4. TOLERATING PO INTAKE WELL. WORKED WITH PT TODAY, AMBULATES WITH SBA AND GAIT BELT. R SHOULDER REMAINS PAINFUL c ICE TO AREA. PT ADVISED TO WORK SHOULDER MUCH HE COULD TOLERATE BUT PT IS VERY UNMOTIVATED. PT QUITE MANIPULATIVE WITH STAFF, CONTINUES TO ASK FOR HIGHER DOSES OF MUSCLE RELAXERS AND NARCOTICS. REPORT GIVEN TO LAURENT ON MEDICAL FLOOR, PT MOVING TO ROOM 360.
--- NOTE | 2023-12-08 19:06 | NUR ---
TRANSFER RECEIVED REPORT FROM HEAVEN IZQUIERDO. ASSUMED CARE AT 1805. PATIENT A&OX4, ABLE TO ANSWER QUESTIONS APPROPRIATELY. UPON ARRIVAL, PATIENT RECEIVED A BLANKET, PANTRY SNACKS, SODA, 2 ICE PACKS, AND PROPPED PATIENT'S ARM UP ON PILLOWS PER REQUEST. PATIENT IS CURRENTLY SITTING IN BED. 3 SIDE RAILS UP PER REQUEST. BED IN THE LOWEST POSITION. CALL LIGHT WITHIN REACH.
[2023-12-09 02:39] VITALS: BP 131/75
[2023-12-09] MEDS ORDERED: GABAPENTIN ER600 MG PO (04:24)
[2023-12-09] MEDS ORDERED: PROAIR RESPICL90 MCG INH (04:25)
[2023-12-09 04:50] LABS: BASOPHILS ABSOLUTE AUTO 0.02 K/mm3 (0.00-0.23); BASOPHILS PERCENT AUTO 0 % (0-2); EOSINOPHILS ABSOLUTE AUTO 0.04 K/mm3 (0.00-0.68); EOSINOPHILS PERCENT AUTO 1 % (0-6); Hematocrit 31.1 % (37.0-53.0); Hemoglobin 10.3 g/dL (13.5-17.5); IMMATURE GRAN ABSOLUTE AUTO 0.09 K/mm3 (0.00-0.10); IMMATURE GRAN PERCENT AUTO 1 % (0-1); LYMPHOCYTES ABSOLUTE AUTO 0.76 K/mm3 (0.84-5.20); LYMPHOCYTES PERCENT AUTO 10 % (21-46); MONOCYTES ABSOLUTE AUTO 0.79 K/mm3 (0.16-1.47); MONOCYTES PERCENT AUTO 11 % (4-13); Mean Corpuscular HGB 28.1 pg (26.0-34.0); Mean Corpuscular HGB Conc 33.1 g/dL (31.5-36.5); Mean Corpuscular Volume 85 fL (80-100); Mean Platelet Volume 9.6 fL (9.1-12.4); NEUTROPHILS ABSOLUTE AUTO 5.78 K/mm3 (1.96-9.15); NEUTROPHILS PERCENT AUTO 77 % (41-73); Platelet Count 205 K/mm3 (150-400); RDW Coefficient Variation 14.6 % (11.7-14.2); RDW Standard Deviation 45.6 fL (35.1-46.3); Red Blood Cell Count 3.67 M/mm3 (4.30-5.90); White Blood Cell Count 7.48 K/mm3 (4.00-11.30)
--- NOTE | 2023-12-09 05:06 | NUR ---
SHIFT SUMMARY PT PLEASANT AND COOPERATIVE WITH CARE. PT HUNGRY THIS SHIFT AND GIVEN SNACKS. TOTAL BED CHANGE DONE EARLIER IN SHIFT. PT HAS CALL LIGHT WITHIN HIS REACH. PT POWERGLIDE DOES NOT DRAW. BED IN LOW POSIION. PT UPSET ABOUT PAIN MEDICATIONS PRESCRIBED BY PHYSICIAN. PT JUST GIVEN TYLENOL AND A MUSCLE RELAXANT. WILL CONTINUE TO MONITOR.
[2023-12-09 05:14] LABS: Albumin, Blood 1.8 g/dL (3.4-5.0); Anion Gap 11 mmol/L (3-11); Blood Urea Nitrogen 9 mg/dL (8-24); Bun/Creatinine Ratio 11.8 (12.0-20.0); CO2, Blood 23 mmol/L (21-32); Calcium, Blood 8.4 mg/dL (8.5-10.1); Chloride, Blood 102 mmol/L (98-108); Creatinine, Blood 0.76 mg/dL (0.60-1.20); Glomerular Filtration Rate 102 (60-); Glucose, Blood 196 mg/dL (70-99); Potassium, Blood 3.4 mmol/L (3.5-5.5); Sodium, Blood 133 mmol/L (136-145)
[2023-12-09 07:14] VITALS: BP 106/85
[2023-12-09] MEDS ORDERED: Potassium Phosphate Dibasic 25 MM in Dextrose 5% 500 ML IV STA (07:41)
[2023-12-09 15:17] VITALS: BP 130/77
--- NOTE | 2023-12-09 16:41 | NUR ---
SHIFT SUMMARY A&OX4, COOPERATIVE, CALLS FREQUENTLY. DENIED ANY CP/PRESSURE, HEADACHE, DIZZINESS, OR SOB THIS SHIFT. COMPLAINED OF PAIN TO R SHOULDER/ARM AND MEDICATED PER EMAR. PATIENT RECEIVED A BED BATH/BED CHANGE TODAY. NO ACUTE EVENTS. PATIENT IS CURRENTLY SLEEPING. BED IN THE LOWEST POSITION. CALL LIGHT WITHIN REACH.
[2023-12-09] MEDS ORDERED: MESA250ER PO (17:46)
[2023-12-09 20:12] VITALS: BP 152/91
[2023-12-10] MEDS ORDERED: NS 250 ML IV PRN (01:05)
[2023-12-10 03:46] VITALS: BP 118/63
--- NOTE | 2023-12-10 05:33 | NUR ---
Shift Summary Pt c/o very painful R shoulder, RoM and strength on that shoulder are near 0 d/t pain. Pt requested 3 ice packs which he places on that shoulder as well as medications per EMAR. He is cooperative with care, does call frequently. He was awake for most of the night. He had a small BM tonight which he described as a handful of small pellets. Rcving IV ABX and insulin as ordered.
[2023-12-10 06:38] LABS: BASOPHILS ABSOLUTE AUTO 0.02 K/mm3 (0.00-0.23); BASOPHILS PERCENT AUTO 0 % (0-2); EOSINOPHILS ABSOLUTE AUTO 0.13 K/mm3 (0.00-0.68); EOSINOPHILS PERCENT AUTO 2 % (0-6); Hematocrit 23.7 % (37.0-53.0); Hemoglobin 7.7 g/dL (13.5-17.5); IMMATURE GRAN ABSOLUTE AUTO 0.07 K/mm3 (0.00-0.10); IMMATURE GRAN PERCENT AUTO 1 % (0-1); LYMPHOCYTES ABSOLUTE AUTO 0.73 K/mm3 (0.84-5.20); LYMPHOCYTES PERCENT AUTO 10 % (21-46); MONOCYTES ABSOLUTE AUTO 0.88 K/mm3 (0.16-1.47); MONOCYTES PERCENT AUTO 11 % (4-13); Mean Corpuscular HGB 28.2 pg (26.0-34.0); Mean Corpuscular HGB Conc 32.5 g/dL (31.5-36.5); Mean Corpuscular Volume 87 fL (80-100); Mean Platelet Volume 9.4 fL (9.1-12.4); NEUTROPHILS ABSOLUTE AUTO 5.89 K/mm3 (1.96-9.15); NEUTROPHILS PERCENT AUTO 76 % (41-73); Platelet Count 284 K/mm3 (150-400); RDW Coefficient Variation 14.7 % (11.7-14.2); RDW Standard Deviation 47.1 fL (35.1-46.3); Red Blood Cell Count 2.73 M/mm3 (4.30-5.90); White Blood Cell Count 7.72 K/mm3 (4.00-11.30)
[2023-12-10 07:00] LABS: Anion Gap 9 mmol/L (3-11); Blood Urea Nitrogen 10 mg/dL (8-24); Bun/Creatinine Ratio 18.5 (12.0-20.0); CO2, Blood 25 mmol/L (21-32); Calcium, Blood 8.9 mg/dL (8.5-10.1); Chloride, Blood 103 mmol/L (98-108); Creatinine, Blood 0.54 mg/dL (0.60-1.20); Glomerular Filtration Rate 113 (60-); Glucose, Blood 191 mg/dL (70-99); Magnesium, Blood 1.9 mg/dL (1.6-2.4); Phosphorus, Blood 3.2 mg/dL (2.5-4.9); Potassium, Blood 3.4 mmol/L (3.5-5.5); Sodium, Blood 134 mmol/L (136-145)
[2023-12-10 08:32] VITALS: BP 100/79
[2023-12-10 08:42] LABS: Vancomycin, Trough 23.6 ug/mL (5.0-10.0)
[2023-12-10] MEDS ORDERED: Acetaminophen 500 MG Tab PO SCH (09:00)
[2023-12-10] MEDS ORDERED: Potassium Chloride 20 MEQ TabCR PO SCH (09:00)
[2023-12-10] MEDS ORDERED: Cyclobenzaprine HCl 10 MG Tab PO PRN (09:25)
[2023-12-10 15:20] VITALS: BP 161/80
[2023-12-10] MEDS ORDERED: Vancomycin HCL 1,500 MG in NS 250 ML IV SCH (16:00)
--- NOTE | 2023-12-10 16:48 | NUR ---
SUMMARY- PT A/O X4, PERFERRED TO HANG OUT IN BED MOST OF THE DAY. GOT UP WITH PHYSICAL THERAPY AT 1600, AMBULATED INTO MARTINS. PT TOLERATING FOOD AND FLUIDS. BLOOD SUGARS HANGING 200-250 RANGE. INCREASED AMOUNT OF INSULIN ADMIN WITH MEALS STARTING AT DINNER. CONT IV VANCO FOR MRSA IN BLOOD CX. REPEAT CX OBTAINED TODAY. PT C/O PAIN IN SHOULDERS, STATES PAIN STARTED 2 WEEKS AGO. XRAY SHOWS ARTHRITIC CHANGES AND NO FX. MEDICATED WITH OXYCODONE 5MG ONCE WITH PARTIAL RELEIF. STARTED FLEXORIL FOR MUSCLE INVOLVEMENT IN SHOULDERS, ADMIN 5MG ONCE WITH PARTIAL RELEIF. WILL REPORT TO RODRICK IZQUIERDO.
[2023-12-10] MEDS ORDERED: Insulin Human Lispro 100 Units/ML 3ML Syringe SC SCH (17:30)
--- NOTE | 2023-12-10 18:56 | NUR ---
CALLED DR JOSE TO LET HIM KNOW OF BLOOD SUGAR 137, SIGNIFICANT DROP FROM LUNCH AFTER HIGH SS NOVALOG 9UNITS. LEFT A MESSAGE BUT DID NOT SPEAK TO DR. CONFERRED WITH PAUL Deshpande, ECONOMIC DEVELOPMENT SPECIALIST'S AT CHANGE OF SHIFT, AGREED TO HOLD 10UNITS NOVOLOG ORDERED WITH DINNER. WILL RECHECK HS, WILL NOTIFY NOC RN WELL
[2023-12-10 19:51] VITALS: BP 158/77
[2023-12-11 05:22] VITALS: BP 137/75
[2023-12-11 05:32] LABS: BASOPHILS ABSOLUTE AUTO 0.03 K/mm3 (0.00-0.23); BASOPHILS PERCENT AUTO 0 % (0-2); EOSINOPHILS ABSOLUTE AUTO 0.17 K/mm3 (0.00-0.68); EOSINOPHILS PERCENT AUTO 3 % (0-6); Hematocrit 32.5 % (37.0-53.0); Hemoglobin 10.7 g/dL (13.5-17.5); IMMATURE GRAN PERCENT AUTO 2 % (0-1); LYMPHOCYTES ABSOLUTE AUTO 0.87 K/mm3 (0.84-5.20); LYMPHOCYTES PERCENT AUTO 13 % (21-46); MONOCYTES ABSOLUTE AUTO 0.85 K/mm3 (0.16-1.47); MONOCYTES PERCENT AUTO 13 % (4-13); Mean Corpuscular HGB 28.3 pg (26.0-34.0); Mean Corpuscular HGB Conc 32.9 g/dL (31.5-36.5); Mean Corpuscular Volume 86 fL (80-100); Mean Platelet Volume 9.2 fL (9.1-12.4); NEUTROPHILS ABSOLUTE AUTO 4.66 K/mm3 (1.96-9.15); NEUTROPHILS PERCENT AUTO 70 % (41-73); Platelet Count 304 K/mm3 (150-400); RDW Coefficient Variation 14.7 % (11.7-14.2); Red Blood Cell Count 3.78 M/mm3 (4.30-5.90); White Blood Cell Count 6.68 K/mm3 (4.00-11.30)
[2023-12-11 06:07] LABS: Anion Gap 8 mmol/L (3-11); Blood Urea Nitrogen 10 mg/dL (8-24); C-REACTIVE PROTEIN, EXT RANGE >19.000 mg/dL (0.000-0.300); CO2, Blood 28 mmol/L (21-32); Chloride, Blood 103 mmol/L (98-108); Creatinine, Blood 0.59 mg/dL (0.60-1.20); Glomerular Filtration Rate 110 (60-); Glucose, Blood 66 mg/dL (70-99); Potassium, Blood 3.4 mmol/L (3.5-5.5); Sodium, Blood 136 mmol/L (136-145)
--- NOTE | 2023-12-11 06:26 | NUR ---
AO4 PT WITH C/O PAIN TO R SHOULDER, REQUESTED NUMEROUS ICE PACKS THROUGHOUT SHIFT EDUCATION RENDERED RE 20 MINUTE INTERVAL APPLICATIONS, DESPITE EDUCATION REPORTS HE WILL CONTINUOUSLY APPY ICE TO SHOULDER. REPORTS PAIN OF 5-10 TO SHOULDE. IV ABX VANCO, NO A/R NOTED, CALL LIGHT WN REACH FALL PRECAUTIONS
[2023-12-11 07:40] VITALS: BP 150/81
--- NOTE | 2023-12-11 07:51 | NUR ---
CALL FROM HEMATOLOGY WITH PRELIMINARY REPORT OF GRAM POSITIVE COCCI IN CLUSTERS OF BLOOD CULTURES X2 , TC TO DR WITH NEW ORDERS IN PLACE BLOOD CLUTURES X2 FOR TODAY,
[2023-12-11] MEDS ORDERED: Cyclobenzaprine HCl 10 MG Tab PO PRN (09:54)
[2023-12-11] MEDS ORDERED: Insulin Glargine-Yfgn 100 Unit/mL 3 ML SYR SC SCH ×2 (10:00→21:00)
[2023-12-11] MEDS ORDERED: Insulin Human Lispro 100 Units/ML 3ML Syringe SC SCH (12:30)
[2023-12-11 16:02] VITALS: BP 150/79
--- NOTE | 2023-12-11 16:31 | NUR ---
PT AOX4 AND COOPERATIVE OF CARE.PT STARTED SHIFT OFF WITH LOW CBG OF [address] BURDEN WAS NOTIFIED AND MADE CHANGES TO EMAR. PT TREATED FOR R SHOULDER PAIN PER EMAR. ABLE TO MAKE NEEDS KNOWN AND CALL LIGHT WITHIN REACH WILL CONTINUE TO MONITOR.
[2023-12-11 19:50] VITALS: BP 160/90
[2023-12-12 03:14] LABS: BASOPHILS ABSOLUTE AUTO 0.04 K/mm3 (0.00-0.23); BASOPHILS PERCENT AUTO 1 % (0-2); EOSINOPHILS ABSOLUTE AUTO 0.23 K/mm3 (0.00-0.68); EOSINOPHILS PERCENT AUTO 3 % (0-6); Hematocrit 33.6 % (37.0-53.0); IMMATURE GRAN ABSOLUTE AUTO 0.21 K/mm3 (0.00-0.10); IMMATURE GRAN PERCENT AUTO 3 % (0-1); LYMPHOCYTES ABSOLUTE AUTO 0.74 K/mm3 (0.84-5.20); LYMPHOCYTES PERCENT AUTO 11 % (21-46); MONOCYTES ABSOLUTE AUTO 0.89 K/mm3 (0.16-1.47); MONOCYTES PERCENT AUTO 13 % (4-13); Mean Corpuscular HGB 28.3 pg (26.0-34.0); Mean Corpuscular HGB Conc 32.7 g/dL (31.5-36.5); Mean Corpuscular Volume 86 fL (80-100); Mean Platelet Volume 8.9 fL (9.1-12.4); NEUTROPHILS PERCENT AUTO 70 % (41-73); Platelet Count 381 K/mm3 (150-400); RDW Coefficient Variation 14.8 % (11.7-14.2); RDW Standard Deviation 46.9 fL (35.1-46.3); Red Blood Cell Count 3.89 M/mm3 (4.30-5.90); White Blood Cell Count 7.01 K/mm3 (4.00-11.30)
[2023-12-12 03:22] VITALS: BP 139/78
[2023-12-12 03:32] LABS: Vancomycin, Trough 15.4 ug/mL (5.0-10.0)
[2023-12-12 04:07] LABS: Albumin, Blood 1.9 g/dL (3.4-5.0); Anion Gap 8 mmol/L (3-11); Blood Urea Nitrogen 13 mg/dL (8-24); Bun/Creatinine Ratio 21.2 (12.0-20.0); C-REACTIVE PROTEIN, EXT RANGE >19.000 mg/dL (0.000-0.300); CO2, Blood 31 mmol/L (21-32); Calcium, Blood 9.1 mg/dL (8.5-10.1); Chloride, Blood 99 mmol/L (98-108); Creatinine, Blood 0.61 mg/dL (0.60-1.20); Glomerular Filtration Rate 109 (60-); Glucose, Blood 202 mg/dL (70-99); Phosphorus, Blood 3.4 mg/dL (2.5-4.9); Potassium, Blood 4.2 mmol/L (3.5-5.5); Sodium, Blood 134 mmol/L (136-145)
--- NOTE | 2023-12-12 05:57 | NUR ---
AO4 pt c/o of 8-04/08 pain to r shoulder see emar, repositioning , also requested mutiple ice packs, pt expresses he want"everything done" to keep him alive and wants to be a full code status, blood cultures reiceved with gram cocci positive in clusters , notified hospitalist of results and pts request for code status. Powerglide flushes , no drawback, Vanco trough this am with pharmacy dosing, Vanco given this am see amna. call light wn reach, fall precautions in place
[2023-12-12 07:14] VITALS: BP 151/81
[2023-12-12 15:39] VITALS: BP 135/87
--- NOTE | 2023-12-12 18:00 | NUR ---
PT PLEASANT TODAY. PAIN MANAGED WITH AVAIL MEDS. HAS BEEN ON PHONE TALKING SOME TODAY. PENDING CT OF SHOULDER TOMORROW. MEDS PER EMAR. NO NEW CONCERNS NOTED. BED IN LOW POISITION, CALL LITE IN REACH, CALLS APPROP
[2023-12-12] MEDS ORDERED: Insulin Human Lispro 100 Units/ML 3ML Syringe SC SCH (18:12)
[2023-12-12] MEDS ORDERED: DAPTOmycin 500 MG in NS 50 ML IV SCH (19:00)
[2023-12-12 19:48] VITALS: BP 149/79
[2023-12-12 19:50] VITALS: BP 149/79
[2023-12-12] MEDS ORDERED: Insulin Glargine-Yfgn 100 Unit/mL 3 ML SYR SC SCH (21:00)
[2023-12-13] VITALS (23 sets, daily range): BP systolic 114–162; BP diastolic 73–98
[2023-12-13 04:50] LABS: BASOPHILS ABSOLUTE AUTO 0.04 K/mm3 (0.00-0.23); BASOPHILS PERCENT AUTO 1 % (0-2); EOSINOPHILS ABSOLUTE AUTO 0.25 K/mm3 (0.00-0.68); EOSINOPHILS PERCENT AUTO 3 % (0-6); Hematocrit 33.9 % (37.0-53.0); Hemoglobin 10.6 g/dL (13.5-17.5); IMMATURE GRAN ABSOLUTE AUTO 0.28 K/mm3 (0.00-0.10); IMMATURE GRAN PERCENT AUTO 4 % (0-1); LYMPHOCYTES ABSOLUTE AUTO 0.85 K/mm3 (0.84-5.20); LYMPHOCYTES PERCENT AUTO 11 % (21-46); MONOCYTES ABSOLUTE AUTO 0.77 K/mm3 (0.16-1.47); MONOCYTES PERCENT AUTO 10 % (4-13); Mean Corpuscular HGB 27.6 pg (26.0-34.0); Mean Corpuscular HGB Conc 31.3 g/dL (31.5-36.5); Mean Corpuscular Volume 88 fL (80-100); Mean Platelet Volume 8.8 fL (9.1-12.4); NEUTROPHILS ABSOLUTE AUTO 5.26 K/mm3 (1.96-9.15); NEUTROPHILS PERCENT AUTO 71 % (41-73); Platelet Count 429 K/mm3 (150-400); RDW Coefficient Variation 15.1 % (11.7-14.2); Red Blood Cell Count 3.84 M/mm3 (4.30-5.90); White Blood Cell Count 7.45 K/mm3 (4.00-11.30)
--- NOTE | 2023-12-13 05:15 | NUR ---
INSOLE BOTTOM FILLER PATIENT IS A&OX4, VITALS AND BLOOD SUGAR ARE STABLE. PATIENT COMPLAINED OF PAIN TO RIGHT SHOULDER AND PRN TYLENOL AND OXY WERE GIVEN.
[2023-12-13 05:37] LABS: Albumin, Blood 1.9 g/dL (3.4-5.0); Anion Gap 11 mmol/L (3-11); Blood Urea Nitrogen 14 mg/dL (8-24); Bun/Creatinine Ratio 20.8 (12.0-20.0); CO2, Blood 29 mmol/L (21-32); Calcium, Blood 9.1 mg/dL (8.5-10.1); Chloride, Blood 99 mmol/L (98-108); Creatinine, Blood 0.67 mg/dL (0.60-1.20); Glomerular Filtration Rate 106 (60-); Glucose, Blood 233 mg/dL (70-99); Phosphorus, Blood 4.2 mg/dL (2.5-4.9); Potassium, Blood 4.3 mmol/L (3.5-5.5); Sodium, Blood 135 mmol/L (136-145)
[2023-12-13] MEDS ORDERED: OxyCODONE HCL 5 MG TAB PO PRN (10:00)
[2023-12-13] MEDS ORDERED: CEFTAROLINE FOSAMIL ACETATE IV SCH ×2 (13:00→23:00)
[2023-12-13] MEDS ORDERED: NS IV SCH ×2 (13:00→23:00)
--- NOTE | 2023-12-13 15:45 | NUR ---
PT TRANSPORTED TO OR BY CAD ENGINEERTIMBO SCHERER AT 15:45.
[2023-12-13] MEDS ORDERED: FentaNYL Citrate 50 MCG/ML 2 ML Injection IV PRN (16:00)
[2023-12-13] MEDS ORDERED: HYDROmorphone HCl/Pf 1MG SYR IV PRN (16:00)
[2023-12-13] MEDS ORDERED: Albuterol 2.5 MG/3 ML VIAL INH ONE (16:00)
[2023-12-13] MEDS ORDERED: Droperidol 5 mg/2 ml Vial IV PRN (16:00)
[2023-12-13] MEDS ORDERED: FentaNYL Citrate 50 MCG/ML 2 ML Injection ONE (16:28)
[2023-12-13] MEDS ORDERED: SuccINYLCHOLINE Chloride 100 MG/5 ML 5MLSYR ONE (16:28)
[2023-12-13] MEDS ORDERED: Rocuronium Bromide 10 MG/ML 5ML Injection IV ONE ×2 (16:28→16:30)
[2023-12-13] MEDS ORDERED: propofoL 20 ML IV ONE (16:28)
[2023-12-13] MEDS ORDERED: Lidocaine HCl 2% 20 ML MDV ONE (16:28)
[2023-12-13] MEDS ORDERED: EpiNEPhrine 1 MG/1 ML 1ML Vial ONE (16:37)
[2023-12-13] MEDS ORDERED: Bupivacaine 0.5% HCl 5 MG/ML 30MLVIAL ONE (16:37)
[2023-12-13] MEDS ORDERED: Ondansetron HCl 2 MG / ML 2ML Vial ONE (17:21)
[2023-12-13] MEDS ORDERED: Ketorolac Tromethamine 30mg Vial ONE (17:22)
--- NOTE | 2023-12-13 17:47 | NUR ---
12/13/23 1747 Larry French BUPIVICAINE 0.5% WITH EPINEPHRINE 1:200,000 30ML GIVEN TO RIGHT SHOULDER BY DR. CORTEZ. PATIENT ON SCHEDULED ANTIBIOTICS.
[2023-12-13] MEDS ORDERED: Sugammadex Sodium 200 MG/2ML SDV (100 MG/ML) ONE (18:06)
[2023-12-13] MEDS ORDERED: HYDROmorphone HCl/Pf 1MG SYR ONE ×2 (18:36→19:07)
[2023-12-13] MEDS ORDERED: Albuterol 2.5 MG/3 ML VIAL ONE (18:44)
--- NOTE | 2023-12-13 19:10 | NUR ---
SHIFT SUMMARY PT IN PACU DURING SHIFT REPORT. THIS NURSE GAVE SHIFT REPORT TO PLANT PHYSIOLOGIST RN NIESHA. PRIOR TO LEAVING FOR THE OR, PT A&OX4, VSS, AMB W/ SBA, NPO STATUS, VOIDING, AND PAIN MANAGED PER EMAR.
[2023-12-14 04:37] VITALS: BP 161/85
[2023-12-14] MEDS ORDERED: Ibuprofen 600 MG Tab PO PRN (05:10)
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
[2023-12-14 05:36] LABS: BASOPHILS ABSOLUTE AUTO 0.03 K/mm3 (0.00-0.23); BASOPHILS PERCENT AUTO 0 % (0-2); EOSINOPHILS ABSOLUTE AUTO 0.21 K/mm3 (0.00-0.68); EOSINOPHILS PERCENT AUTO 2 % (0-6); Hematocrit 35.4 % (37.0-53.0); Hemoglobin 11.3 g/dL (13.5-17.5); IMMATURE GRAN ABSOLUTE AUTO 0.17 K/mm3 (0.00-0.10); IMMATURE GRAN PERCENT AUTO 2 % (0-1); LYMPHOCYTES ABSOLUTE AUTO 0.87 K/mm3 (0.84-5.20); LYMPHOCYTES PERCENT AUTO 10 % (21-46); MONOCYTES ABSOLUTE AUTO 0.66 K/mm3 (0.16-1.47); MONOCYTES PERCENT AUTO 8 % (4-13); Mean Corpuscular HGB 28.3 pg (26.0-34.0); Mean Corpuscular HGB Conc 31.9 g/dL (31.5-36.5); Mean Corpuscular Volume 89 fL (80-100); Mean Platelet Volume 8.7 fL (9.1-12.4); NEUTROPHILS ABSOLUTE AUTO 6.91 K/mm3 (1.96-9.15); NEUTROPHILS PERCENT AUTO 78 % (41-73); Platelet Count 496 K/mm3 (150-400); RDW Coefficient Variation 15.2 % (11.7-14.2); RDW Standard Deviation 49.8 fL (35.1-46.3); White Blood Cell Count 8.85 K/mm3 (4.00-11.30)
[2023-12-14 06:14] LABS: Alanine Aminotransfer (ALT/SGP 22 U/L (12-78); Albumin, Blood 2.1 g/dL (3.4-5.0); Albumin/Globulin Ratio 0.4 (0.8-1.8); Alk Phos 158 U/L (50-136); Anion Gap 7 mmol/L (3-11); Aspartate Aminotrans (AST/SGOT 30 U/L (12-37); Bilirubin, Total 0.2 mg/dL (0.1-1.0); Blood Urea Nitrogen 13 mg/dL (8-24); Bun/Creatinine Ratio 17.8 (12.0-20.0); C-REACTIVE PROTEIN, EXT RANGE >19.000 mg/dL (0.000-0.300); CO2, Blood 31 mmol/L (21-32); Calcium, Blood 8.8 mg/dL (8.5-10.1); Chloride, Blood 98 mmol/L (98-108); Creatinine, Blood 0.73 mg/dL (0.60-1.20); Globulin, Blood 4.9 g/dL (2.2-4.0); Glomerular Filtration Rate 104 (60-); Glucose, Blood 195 mg/dL (70-99); Potassium, Blood 4.2 mmol/L (3.5-5.5); Sodium, Blood 132 mmol/L (136-145)
[2023-12-14 07:09] VITALS: BP 152/84
--- NOTE | 2023-12-14 07:25 | NUR ---
ASSUMED CARE: PT ON 2L O2 VIA NC. RIGHT SHOULDER WITH DRESSING THAT HAS BEEN REINFORCED OVERNIGHT. CALL TO [facility] WHO STATES PT CAN EAT DUE TO NO PLANS FOR PROCEDURES TODAY. POSTBED STITCHER AT BEDSIDE. NO ACUTE NEEDS OR CONCERNS AT THIS TIME.
--- NOTE | 2023-12-14 18:19 | NUR ---
SHIFT SUMMARY PATIENT A/OX4. HAS LOW APPETITE AND BLOOD SUGARS THIS AFTERNOON RANGE FROM 90-140. SHORT ACTING INSULIN HELD PER AUG. PATIENT COMPLAINING OF PAIN TO RIGHT SHOULDEER THROUGHOUT THE SHIFT AND PRNS OXYCODONE, FLEXERIL, AND SCHEDULED TYLENOL ADMINISTERED. PATIENT CONTINUES WITH ELEVATED TEMP. IV ABX INFUSED PER AUG. PATIENT DRESSING TO SHOULDER REINFORCED WITH TAPE THIS MORNING. MD NOTIFIED OF LOWERED BLOOD SUGARS AND NEW ORDERS RECIEVED FOR CHANGE IN SCHEDULED 20 UNITS TO 10 UNITS. PATIENT USES URN INDEPENDENTLY AT BEDSIDE. NO OTHER CONCERNS AT THIS TIME.
[2023-12-14 19:16] VITALS: BP 139/76
[2023-12-14] MEDS ORDERED: Insulin Glargine-Yfgn 100 Unit/mL 3 ML SYR SC SCH (21:00)
--- NOTE | 2023-12-14 21:56 | NUR ---
TOOK OVER CARE DURING PRIMARY NURSE BREAK. PT DENIES NEEDS AT THIS TIME AND CALL LIGHT WITHIN REACH.
--- NOTE | 2023-12-15 00:48 | NUR ---
ASSUMED CARE OF PT WHEN PRIMARY NURSE WENT TO BREAK. PT DENIES NEEDS AT THIS TIME. CALL LIGHT WITHIN REACH.
[2023-12-15 02:42] VITALS: BP 138/77
--- NOTE | 2023-12-15 04:20 | NUR ---
ASSUMED CARE OF PT WHILE PRIMARY RN ON BREAK. PT DENIES NEEDS AT THIS TIME AND CALL LIGHT WITHIN REACH.
[2023-12-15 04:45] LABS: BASOPHILS ABSOLUTE AUTO 0.03 K/mm3 (0.00-0.23); BASOPHILS PERCENT AUTO 1 % (0-2); EOSINOPHILS ABSOLUTE AUTO 0.18 K/mm3 (0.00-0.68); EOSINOPHILS PERCENT AUTO 3 % (0-6); Hematocrit 30.9 % (37.0-53.0); Hemoglobin 9.8 g/dL (13.5-17.5); IMMATURE GRAN ABSOLUTE AUTO 0.09 K/mm3 (0.00-0.10); IMMATURE GRAN PERCENT AUTO 2 % (0-1); LYMPHOCYTES ABSOLUTE AUTO 0.76 K/mm3 (0.84-5.20); LYMPHOCYTES PERCENT AUTO 12 % (21-46); MONOCYTES ABSOLUTE AUTO 0.48 K/mm3 (0.16-1.47); MONOCYTES PERCENT AUTO 8 % (4-13); Mean Corpuscular HGB 27.8 pg (26.0-34.0); Mean Corpuscular HGB Conc 31.7 g/dL (31.5-36.5); Mean Corpuscular Volume 88 fL (80-100); Mean Platelet Volume 8.6 fL (9.1-12.4); NEUTROPHILS ABSOLUTE AUTO 4.59 K/mm3 (1.96-9.15); NEUTROPHILS PERCENT AUTO 75 % (41-73); Platelet Count 410 K/mm3 (150-400); RDW Standard Deviation 48.2 fL (35.1-46.3); Red Blood Cell Count 3.52 M/mm3 (4.30-5.90); White Blood Cell Count 6.13 K/mm3 (4.00-11.30)
[2023-12-15 05:52] LABS: Anion Gap 8 mmol/L (3-11); Blood Urea Nitrogen 10 mg/dL (8-24); C-REACTIVE PROTEIN, EXT RANGE >19.000 mg/dL (0.000-0.300); CO2, Blood 30 mmol/L (21-32); Calcium, Blood 8.8 mg/dL (8.5-10.1); Chloride, Blood 104 mmol/L (98-108); Creatinine, Blood 0.71 mg/dL (0.60-1.20); Glomerular Filtration Rate 104 (60-); Glucose, Blood 191 mg/dL (70-99); Potassium, Blood 4.1 mmol/L (3.5-5.5); Sodium, Blood 138 mmol/L (136-145)
[2023-12-15 07:37] VITALS: BP 132/77
--- NOTE | 2023-12-15 07:43 | NUR ---
SHIFT SUMMARY PT IS A&OX4. NORMOTENSIVE, HR TACHY 120 BPM, T-MAX 99.3, ON 2L NC. C/O PAIN IN HIS RIGHT SHOULDER 8-03/09. MEDICATED WITH 600MG PO IBUPROFEN, 10MG PO OXYCODONE AND 10MG PO FLEXERIL. PT REFUSED HIS TYLENOL SAID IT DOES NOTHING. ICE PACKS TO RIGHT SHOULDER T/O NOC. DRESSING TO RIGHT SHOULDER INTACT. TOLERATING A CONSISTENT CARB DIET WITH A GOOD APPETITE. USING URINAL IN BED INDEPENDENTLY, NO BM THIS SHIFT. NOOB THIS SHIFT. RED RASH TO BILATERAL FLANK AREAS, ASYMPTOMATIC. BED IN LOWEST POSITION, CALL LIGHT WITHIN REACH.
[2023-12-15] MEDS ORDERED: Insulin Human Lispro 100 Units/ML 3ML Syringe SC SCH (08:30)
--- NOTE | 2023-12-15 09:00 | NUR ---
Pt laying in bed awake a/ox4, pleasant and cooperative with care, follows commands well, reports pain to his right shoulder, lungs are clear dim in basis, currently on 3 liters 02 via n/c, resp even and unlabored, no cough noted, hrr, tachy at times, has a rash to b/l flanks, no open areas, power glide to maida, site is clear and patent, but does not draw, can get up with walker, but doesn't take direction, oma, call light in reach.
[2023-12-15 17:11] VITALS: BP 154/71
--- NOTE | 2023-12-15 18:27 | NUR ---
Pt ambulated with PT today out in the [place], did better, sat up in the chair, came in and removed dressing and drains from right shoulder, has been medicated for pain throughout the day, no further changes this shift. call light in reach.
[2023-12-15 20:12] VITALS: BP 99/60
[2023-12-15 20:13] VITALS: BP 123/73
[2023-12-16 03:33] VITALS: BP 156/79
[2023-12-16 04:33] LABS: BASOPHILS ABSOLUTE AUTO 0.04 K/mm3 (0.00-0.23); BASOPHILS PERCENT AUTO 1 % (0-2); EOSINOPHILS ABSOLUTE AUTO 0.16 K/mm3 (0.00-0.68); EOSINOPHILS PERCENT AUTO 2 % (0-6); Hematocrit 31.6 % (37.0-53.0); IMMATURE GRAN ABSOLUTE AUTO 0.11 K/mm3 (0.00-0.10); IMMATURE GRAN PERCENT AUTO 2 % (0-1); LYMPHOCYTES PERCENT AUTO 15 % (21-46); MONOCYTES ABSOLUTE AUTO 0.44 K/mm3 (0.16-1.47); MONOCYTES PERCENT AUTO 6 % (4-13); Mean Corpuscular HGB Conc 31.6 g/dL (31.5-36.5); Mean Corpuscular Volume 89 fL (80-100); Mean Platelet Volume 8.7 fL (9.1-12.4); NEUTROPHILS PERCENT AUTO 74 % (41-73); Platelet Count 467 K/mm3 (150-400); RDW Coefficient Variation 14.6 % (11.7-14.2); RDW Standard Deviation 47.7 fL (35.1-46.3); Red Blood Cell Count 3.57 M/mm3 (4.30-5.90); White Blood Cell Count 7.15 K/mm3 (4.00-11.30)
[2023-12-16 05:02] LABS: Alanine Aminotransfer (ALT/SGP 22 U/L (12-78); Albumin, Blood 1.8 g/dL (3.4-5.0); Albumin/Globulin Ratio 0.4 (0.8-1.8); Alk Phos 133 U/L (50-136); Anion Gap 11 mmol/L (3-11); Aspartate Aminotrans (AST/SGOT 18 U/L (12-37); Bilirubin, Total 0.2 mg/dL (0.1-1.0); Blood Urea Nitrogen 13 mg/dL (8-24); Bun/Creatinine Ratio 14.9 (12.0-20.0); C-REACTIVE PROTEIN, EXT RANGE >19.000 mg/dL (0.000-0.300); CO2, Blood 26 mmol/L (21-32); Calcium, Blood 8.6 mg/dL (8.5-10.1); Chloride, Blood 103 mmol/L (98-108); Creatinine, Blood 0.88 mg/dL (0.60-1.20); Globulin, Blood 4.7 g/dL (2.2-4.0); Glomerular Filtration Rate 98 (60-); Glucose, Blood 227 mg/dL (70-99); Potassium, Blood 4.1 mmol/L (3.5-5.5); Sodium, Blood 136 mmol/L (136-145); Total Protein, Blood 6.5 g/dL (6.4-8.2)
[2023-12-16 07:21] VITALS: BP 182/87
--- NOTE | 2023-12-16 09:00 | NUR ---
pt laying in bed, sleepy this am, states he didn't sleep well last night, lungs are clear in [place], dim in bases, resp even and unlabored, no cough noted, currenlty on 3 liters 02 via n/c, no cough noted, hrr, no edema noted, power glide to maida site is clear and patent, btx4, abd round soft nontender, reports large bm last night voids clear yellow urine via urinal, skin ok, maew, ambulates with one person assist and walkeroma, call light in reach.
--- NOTE | 2023-12-16 14:34 | NUR ---
pt sleepy today, wakes easily, no complaints at this time.call light in reach.
[2023-12-16 16:40] VITALS: BP 170/86
--- NOTE | 2023-12-16 18:42 | NUR ---
pt has slept most of the day when not being disturbed, he is refusing to allow staff to turn him in bed and states he turns himself, no further changes this shift, call light in reach.
[2023-12-16 20:01] VITALS: BP 160/73
[2023-12-17] VITALS (13 sets, daily range): BP systolic 132–167; BP diastolic 77–96
--- NOTE | 2023-12-17 06:38 | NUR ---
SHIFT SUMMARY PT PLEASANT AND COOPERATIVE. PT SLEPT OFF AND ON THROUGH THE SHIFT. PT GIVEN PAIN MEDICATION EVERY 4 HOURS OR SO THROUGHOUT THE NIGHT. STILL HAVING PAIN IN HIS SHOULDER, MEDICATED PER EMAR. PT HAS CALL LIGHT WITHIN HIS REACH AND HIS BED IS IN LOW POSITION. WILL CONTINUE TO MONITOR.
[2023-12-17 06:43] LABS: BASOPHILS ABSOLUTE AUTO 0.05 K/mm3 (0.00-0.23); BASOPHILS PERCENT AUTO 1 % (0-2); EOSINOPHILS ABSOLUTE AUTO 0.15 K/mm3 (0.00-0.68); EOSINOPHILS PERCENT AUTO 2 % (0-6); Hematocrit 31.5 % (37.0-53.0); IMMATURE GRAN ABSOLUTE AUTO 0.06 K/mm3 (0.00-0.10); IMMATURE GRAN PERCENT AUTO 1 % (0-1); LYMPHOCYTES ABSOLUTE AUTO 1.19 K/mm3 (0.84-5.20); LYMPHOCYTES PERCENT AUTO 16 % (21-46); MONOCYTES ABSOLUTE AUTO 0.43 K/mm3 (0.16-1.47); MONOCYTES PERCENT AUTO 6 % (4-13); Mean Corpuscular HGB 27.8 pg (26.0-34.0); Mean Corpuscular HGB Conc 31.7 g/dL (31.5-36.5); Mean Corpuscular Volume 88 fL (80-100); Mean Platelet Volume 8.5 fL (9.1-12.4); NEUTROPHILS ABSOLUTE AUTO 5.57 K/mm3 (1.96-9.15); NEUTROPHILS PERCENT AUTO 75 % (41-73); Platelet Count 498 K/mm3 (150-400); RDW Coefficient Variation 14.6 % (11.7-14.2); RDW Standard Deviation 46.7 fL (35.1-46.3); White Blood Cell Count 7.45 K/mm3 (4.00-11.30)
[2023-12-17 07:07] LABS: Albumin, Blood 1.9 g/dL (3.4-5.0); Albumin/Globulin Ratio 0.4 (0.8-1.8); Bilirubin, Total 0.2 mg/dL (0.1-1.0); C-REACTIVE PROTEIN, EXT RANGE 12.6 mg/dL (0.000-0.300); Calcium, Blood 9.2 mg/dL (8.5-10.1); Creatinine, Blood 0.71 mg/dL (0.60-1.20); Globulin, Blood 4.8 g/dL (2.2-4.0); Potassium, Blood 4.4 mmol/L (3.5-5.5); Total Protein, Blood 6.7 g/dL (6.4-8.2)
[2023-12-17] MEDS ORDERED: Benzocaine Oral Spray 0.5ML UD ONE (13:16)
--- NOTE | 2023-12-17 13:25 | NUR ---
LEFT UNIT NOTE: PATIENT LEFT THE ROOM AT 1321 TRANSPORTED VIA BED BY [facility] RN'S TO NET TECHNICAL ARCHITECT.
[2023-12-17] MEDS ORDERED: Naloxone HCl 0.4MG / ML 1ML Vial ONE (13:28)
[2023-12-17] MEDS ORDERED: FentaNYL Citrate 50 MCG/ML 2 ML Injection ONE (13:29)
[2023-12-17] MEDS ORDERED: Midazolam HCl 1MG / ML 2ML Vial ONE (13:29)
[2023-12-17] MEDS ORDERED: NS 1,000 ML IV ONE (13:30)
[2023-12-17] MEDS ORDERED: Flumazenil 0.1 MG / ML 5ML Vial ONE (13:31)
--- NOTE | 2023-12-17 14:39 | NUR ---
NOTE: PATIENT BACK IN ROOM AT THIS TIME FROM [employer] [facility]. VITALS SIGNS TAKEN.
--- NOTE | 2023-12-17 16:34 | NUR ---
SHIFT SUMMARY: PATIENT A/OX4, VERY TALKATIVE, PLEASANT AND COOPERATIVE c CARE. PATIENT CONTINUES TO REPORTS PAIN TO R SHOULDER MEDICATED PER EMAR AND ICE PACK c MOD EFFECT. DRESSING TO R SHOULDER C/D/I. PATIENT REFUSED REPOSITIONING T/O SHIFT. PATIENT HAD ASAD DONE THIS PM c RESULT. PATIENT CONTINENCE OF BLADDER, USES URINAL IN BED INDEPENDENTLY, GREAT APPETITE. PATIENT ON 1L O2 VIA NC SAT 90-98%, DENIES SOB, N/V, CP/PRESSURE AND DIZZINESS. VITAL SIGNS REVIEWED. POWERGLIDE TO ROBBIE DOES NOT DRAW. CALL LIGHT IN REACH.
[2023-12-18 03:51] VITALS: BP 139/78
[2023-12-18 04:41] LABS: BASOPHILS ABSOLUTE AUTO 0.08 K/mm3 (0.00-0.23); BASOPHILS PERCENT AUTO 1 % (0-2); EOSINOPHILS ABSOLUTE AUTO 0.12 K/mm3 (0.00-0.68); EOSINOPHILS PERCENT AUTO 1 % (0-6); Hematocrit 31.8 % (37.0-53.0); IMMATURE GRAN ABSOLUTE AUTO 0.07 K/mm3 (0.00-0.10); IMMATURE GRAN PERCENT AUTO 1 % (0-1); LYMPHOCYTES ABSOLUTE AUTO 1.34 K/mm3 (0.84-5.20); LYMPHOCYTES PERCENT AUTO 16 % (21-46); MONOCYTES ABSOLUTE AUTO 0.47 K/mm3 (0.16-1.47); MONOCYTES PERCENT AUTO 6 % (4-13); Mean Corpuscular HGB 27.2 pg (26.0-34.0); Mean Corpuscular HGB Conc 31.4 g/dL (31.5-36.5); Mean Corpuscular Volume 87 fL (80-100); Mean Platelet Volume 8.5 fL (9.1-12.4); NEUTROPHILS ABSOLUTE AUTO 6.28 K/mm3 (1.96-9.15); NEUTROPHILS PERCENT AUTO 75 % (41-73); Platelet Count 524 K/mm3 (150-400); RDW Coefficient Variation 14.4 % (11.7-14.2); RDW Standard Deviation 46.3 fL (35.1-46.3); Red Blood Cell Count 3.67 M/mm3 (4.30-5.90); White Blood Cell Count 8.36 K/mm3 (4.00-11.30)
[2023-12-18 05:11] LABS: Albumin/Globulin Ratio 0.4 (0.8-1.8); Bilirubin, Total 0.2 mg/dL (0.1-1.0); Bun/Creatinine Ratio 18.5 (12.0-20.0); Calcium, Blood 9.1 mg/dL (8.5-10.1); Creatinine, Blood 0.87 mg/dL (0.60-1.20); Globulin, Blood 4.8 g/dL (2.2-4.0); Potassium, Blood 4.4 mmol/L (3.5-5.5); Total Protein, Blood 6.8 g/dL (6.4-8.2)
--- NOTE | 2023-12-18 05:25 | NUR ---
SHIFT SUMMARY PT PLEASANT AND COOPERATIVE WITH CARE. PT CONTINUES TO HAVE A HEALTHY APPETITE. SUGAR FREE SNACKS PROVIDED THROUGHOUT SHIFT. PT UP TO RESTROOM WITH FWW AND STANDBY ASSIST. BED IN LOW POSITION, CALL LIGHT WITHIN REACH. PT JUST MEDICATED FOR PAIN PER EMAR. WILL CONTINUE TO MONITOR.
[2023-12-18 07:30] VITALS: BP 136/73
[2023-12-18 15:41] VITALS: BP 137/81
--- NOTE | 2023-12-18 16:05 | NUR ---
SHIFT SUMMARY; PATEINT HAS PLEASANT AFFECT AND IS COOPERATIVE WITH CARE. WORKS WITH PT THIS AFTERNOON AND IS MUCH ENCOURAGED THAT HE IS ABLE TO PULL HIMSELF UP TO STANDING POSITION AND TAKE A FEW STEPS. PATIENT IS AO X 4. HE USES CALL LIGHT APPROPRIATELY AND IS ABLE TO MAKE HIS NEEDS KNOWN. HE ASKS FOR ICE PACKS FOR HIS RIGHT SHOULDER FREQUENTLY TO ASSIST WITH PAIN CONTROL. HIS LUNGS ARE CLEAR TO AUSCULTATION AND BREATHING IS EVEN AND UNLABORED. VITAL SIGNS ARE STABLE AND HE IS NOT FEBRILE. WILL CONTINUE TO MONITOR THIS PATIENT CLOSELY UNTIL REPORT AND HAND OFF TO NOC SHIFT RN.
[2023-12-18 19:23] VITALS: BP 155/88
[2023-12-19 04:48] VITALS: BP 143/83
--- NOTE | 2023-12-19 05:01 | NUR ---
SHIFT SUMMARY: PT IS ALERT AND ORIENTED. PT IS CALM AND COOPERATIVE WITH CARE. PT CALLS APPROPRIATELY. PT IS A ONE PERSON ASSIST WITH THE FWW, NOT OUT OF BED OVERNIGHT, USING THE URINAL INDEPENDENTLY. PT REPORTS PAIN ON SEVERAL OCCASIONS, MEDICATING PER EMAR. PT DENIES NAUSEA, VOMITING, AND SOB. NO ACUTE CHANGES OVERNIGHT. BED IN LOW POSITION, CALL LIGHT WITHIN REACH. WILL REPORT TO DAY NURSE.
[2023-12-19 06:12] LABS: BASOPHILS ABSOLUTE AUTO 0.07 K/mm3 (0.00-0.23); BASOPHILS PERCENT AUTO 1 % (0-2); EOSINOPHILS ABSOLUTE AUTO 0.09 K/mm3 (0.00-0.68); EOSINOPHILS PERCENT AUTO 1 % (0-6); Hematocrit 32.5 % (37.0-53.0); Hemoglobin 10.2 g/dL (13.5-17.5); IMMATURE GRAN ABSOLUTE AUTO 0.05 K/mm3 (0.00-0.10); IMMATURE GRAN PERCENT AUTO 1 % (0-1); LYMPHOCYTES ABSOLUTE AUTO 1.38 K/mm3 (0.84-5.20); LYMPHOCYTES PERCENT AUTO 20 % (21-46); MONOCYTES PERCENT AUTO 7 % (4-13); Mean Corpuscular HGB 27.4 pg (26.0-34.0); Mean Corpuscular HGB Conc 31.4 g/dL (31.5-36.5); Mean Corpuscular Volume 87 fL (80-100); Mean Platelet Volume 8.6 fL (9.1-12.4); NEUTROPHILS ABSOLUTE AUTO 4.84 K/mm3 (1.96-9.15); NEUTROPHILS PERCENT AUTO 70 % (41-73); Platelet Count 514 K/mm3 (150-400); RDW Coefficient Variation 14.5 % (11.7-14.2); RDW Standard Deviation 46.3 fL (35.1-46.3); Red Blood Cell Count 3.72 M/mm3 (4.30-5.90); White Blood Cell Count 6.93 K/mm3 (4.00-11.30)
[2023-12-19 06:42] LABS: Bun/Creatinine Ratio 22.7 (12.0-20.0); C-REACTIVE PROTEIN, EXT RANGE 8.21 mg/dL (0.000-0.300); Calcium, Blood 9.2 mg/dL (8.5-10.1); Creatinine, Blood 0.88 mg/dL (0.60-1.20); Potassium, Blood 4.3 mmol/L (3.5-5.5)
[2023-12-19 07:54] VITALS: BP 141/88
[2023-12-19 16:55] VITALS: BP 131/78
--- NOTE | 2023-12-19 18:29 | NUR ---
SHIFT SUMMARY; PATIENT NOW HAS ORDERS FOR OT EVAL AND TREAT. ANSWERING SERVICE WAS CALLED TO ASK ABOUT DRESSING CHANGE ON HIS I AND D SITE ON RIGHT SHOULDER. OF THIS WRITING NO CALL BACK. WILL PASS ON IN REPORT THAT DRESSING HAS NOT BEEN CHANGED IN 3 DAYS AND CONCERN FOR INFECTION. NOTIFIED AND HE RECOMMENDED WE WAIT FOR ORTHO TO SEE THIS PATIENT BEFORE REMOVING THIS BANDAGE. VITAL SIGNS ARE STABLE AND PATIENT REMAINS AFEBRILE.
[2023-12-19] MEDS ORDERED: Lactobacil 2-S.Thermo-Bifido 1 1 Cap PO SCH (21:00)
[2023-12-19 21:08] VITALS: BP 134/85
[2023-12-20 04:44] VITALS: BP 148/79
[2023-12-20 05:08] LABS: BASOPHILS ABSOLUTE AUTO 0.08 K/mm3 (0.00-0.23); BASOPHILS PERCENT AUTO 1 % (0-2); EOSINOPHILS ABSOLUTE AUTO 0.11 K/mm3 (0.00-0.68); EOSINOPHILS PERCENT AUTO 2 % (0-6); Hematocrit 31.9 % (37.0-53.0); Hemoglobin 10.1 g/dL (13.5-17.5); IMMATURE GRAN ABSOLUTE AUTO 0.05 K/mm3 (0.00-0.10); IMMATURE GRAN PERCENT AUTO 1 % (0-1); LYMPHOCYTES ABSOLUTE AUTO 1.37 K/mm3 (0.84-5.20); LYMPHOCYTES PERCENT AUTO 19 % (21-46); MONOCYTES PERCENT AUTO 7 % (4-13); Mean Corpuscular HGB 27.7 pg (26.0-34.0); Mean Corpuscular HGB Conc 31.7 g/dL (31.5-36.5); Mean Corpuscular Volume 87 fL (80-100); Mean Platelet Volume 8.5 fL (9.1-12.4); NEUTROPHILS ABSOLUTE AUTO 5.31 K/mm3 (1.96-9.15); NEUTROPHILS PERCENT AUTO 72 % (41-73); Platelet Count 508 K/mm3 (150-400); RDW Coefficient Variation 14.4 % (11.7-14.2); Red Blood Cell Count 3.65 M/mm3 (4.30-5.90); White Blood Cell Count 7.42 K/mm3 (4.00-11.30)
[2023-12-20 05:32] LABS: Albumin, Blood 2.1 g/dL (3.4-5.0); Albumin/Globulin Ratio 0.4 (0.8-1.8); Bilirubin, Total 0.2 mg/dL (0.1-1.0); Bun/Creatinine Ratio 19.5 (12.0-20.0); C-REACTIVE PROTEIN, EXT RANGE 7.22 mg/dL (0.000-0.300); Calcium, Blood 9.1 mg/dL (8.5-10.1); Creatinine, Blood 0.87 mg/dL (0.60-1.20); Globulin, Blood 4.7 g/dL (2.2-4.0); Potassium, Blood 4.3 mmol/L (3.5-5.5); Total Protein, Blood 6.8 g/dL (6.4-8.2)
--- NOTE | 2023-12-20 05:38 | NUR ---
SHIFT SUMMARY: PATIENT FULLY ORIENTED, COOPERATIVE. DRESSING ON SHOULDER CHANGED WITH XEROFORM/GAUZE/ABD PAD/TAPE. COMPLAINTS OF HIGH PAIN THROUGH NIGHT: ROXICODONE AND DILAUDID GIVEN WITH LITTLE CHANGE IN PAIN LEVEL. PATIENT SLEPT POORLY.
[2023-12-20 08:09] VITALS: BP 141/83
[2023-12-20 14:49] VITALS: BP 133/80
--- NOTE | 2023-12-20 18:20 | NUR ---
SHIFT SUMMARY PT AOX4, SBA WITH HIS WALKER AND THE GB TO THE CHAIR. PT UP FOR MEALS. WALKED THE HALLS TODAY WITH THE GAMBLING BOX PERSON. MEDICATED FOR PAIN PER THE EMAR. ICE APPLIED TO THE SHOULDER. PT REPOSITIONED NEEDED. TALKATIVE. MAKES NEEDS KNOWN. CALL LIGHT WITHIN REACH, BED LOCKED IN THE LOWEST POSITION. WILL REPORT TO ONCOMING NURSE.
[2023-12-21 03:39] VITALS: BP 152/88
[2023-12-21 04:40] LABS: BASOPHILS ABSOLUTE AUTO 0.09 K/mm3 (0.00-0.23); BASOPHILS PERCENT AUTO 1 % (0-2); EOSINOPHILS ABSOLUTE AUTO 0.14 K/mm3 (0.00-0.68); EOSINOPHILS PERCENT AUTO 2 % (0-6); Hematocrit 32.9 % (37.0-53.0); Hemoglobin 10.4 g/dL (13.5-17.5); IMMATURE GRAN ABSOLUTE AUTO 0.04 K/mm3 (0.00-0.10); IMMATURE GRAN PERCENT AUTO 1 % (0-1); LYMPHOCYTES ABSOLUTE AUTO 1.56 K/mm3 (0.84-5.20); LYMPHOCYTES PERCENT AUTO 20 % (21-46); MONOCYTES ABSOLUTE AUTO 0.49 K/mm3 (0.16-1.47); MONOCYTES PERCENT AUTO 6 % (4-13); Mean Corpuscular HGB 27.8 pg (26.0-34.0); Mean Corpuscular HGB Conc 31.6 g/dL (31.5-36.5); Mean Corpuscular Volume 88 fL (80-100); Mean Platelet Volume 8.5 fL (9.1-12.4); NEUTROPHILS ABSOLUTE AUTO 5.66 K/mm3 (1.96-9.15); NEUTROPHILS PERCENT AUTO 71 % (41-73); Platelet Count 483 K/mm3 (150-400); RDW Coefficient Variation 14.4 % (11.7-14.2); RDW Standard Deviation 46.6 fL (35.1-46.3); Red Blood Cell Count 3.74 M/mm3 (4.30-5.90); White Blood Cell Count 7.98 K/mm3 (4.00-11.30)
[2023-12-21 04:59] LABS: Bun/Creatinine Ratio 27.7 (12.0-20.0); C-REACTIVE PROTEIN, EXT RANGE 6.6 mg/dL (0.000-0.300); Creatinine, Blood 0.72 mg/dL (0.60-1.20); Potassium, Blood 4.7 mmol/L (3.5-5.5)
--- NOTE | 2023-12-21 06:05 | NUR ---
SHIFT SUMMARY: PATIENT FULLY ORIENTED, CAN WALK WITH FWW. RIGHT SHOULDER PRIMARY SOURCE OF PAIN - ROXYCODONE GIVEN Q4H, DILAUDID PRN. DID NOT SLEEP WELL THROUGH NIGHT.
[2023-12-21 07:29] VITALS: BP 147/79
--- NOTE | 2023-12-21 11:02 | NUR ---
BANDAGE WAS CHANGED ON PT'S R SHOULDER. NO INFECTION NOTED AND BANDAGE WAS REAPPLIED. PT TOLERATED WELL.
[2023-12-21 15:44] VITALS: BP 135/75
--- NOTE | 2023-12-21 16:38 | NUR ---
SHIFT SUMMARY PT AOX4, SBA WITH THE FWW TO THE CHAIR. UP FOR MEALS THIS SHIFT, PT TOLERATED IT WELL. DRESSING CHANGED TO THE RIGHT SHOULER. MEDICATED FOR PAIN PER THE EMAR. HE CALLS AND MAKES HIS NEEDS KNOWN. NO ACUTE EVENTS THIS SHIFT. PT IS WAITING FOR SNIF PLACEMENT. CALL LIGHT WITHIN REACH, BED LOCKED AND IN THE LOWEST POSITION. PT CAN INDEPENDENTLY REPOSITION HIMSELF IN THE BED. WILL REPORT TO ONCOMING NURSE.
[2023-12-21 20:12] VITALS: BP 146/81
--- NOTE | 2023-12-21 21:22 | NUR ---
ASSUMPTION OF CARE: THIS RN ASSUMED CARE OF PT AT APPROX 1900. PT ALERT, ORIENTED X4. SITTING UP IN BED. DENIES SOB/CHEST PRESSURE. VSS. C/O R SHOULDER PAIN, ICE PACK PROVIDED. SEE SHIFT ASSESSMENT FOR FURTHER DETAILS. CALL LIGHT IN REACH.
--- NOTE | 2023-12-22 04:07 | NUR ---
END OF SHIFT NOTE: NO ACUTE OVERNIGHT EVENTS. PT A/OX4, ABLE TO CALL APPROPRIATELY & COMMUNICATE NEEDS W/ STAFF. VSS OVERNIGHT. DENIES CHEST PAIN/PRESSURE. RESPIRATIONS EVEN & UNLABORED. C/O PAIN TO LEFT SHOULDER, MEDICATED PER EMAR & PROVIDED W/ ICE/HEAT PER PT REQUEST. DRESSING REMAINS C/D/I. HS CBG 187. PT TOLERATING PO INTAKE WELL. ABLE TO VOID IN URINAL INDEPENDENTLY, YELLOW URINE. NO BM'S THIS SHIFT. ABLE TO INDEPENDENTLY REPOSITION SELF IN BED. RESTING IN BED AT THIS TIME. CALLL LIGHT IN REACH, WILL CONTINUE TO MONITOR UNTIL REPORT TO DAY SHIFT RN.
[2023-12-22 05:01] VITALS: BP 159/98
[2023-12-22 05:06] LABS: BASOPHILS ABSOLUTE AUTO 0.11 K/mm3 (0.00-0.23); BASOPHILS PERCENT AUTO 1 % (0-2); EOSINOPHILS ABSOLUTE AUTO 0.17 K/mm3 (0.00-0.68); EOSINOPHILS PERCENT AUTO 2 % (0-6); Hematocrit 33.5 % (37.0-53.0); Hemoglobin 10.5 g/dL (13.5-17.5); IMMATURE GRAN ABSOLUTE AUTO 0.04 K/mm3 (0.00-0.10); IMMATURE GRAN PERCENT AUTO 1 % (0-1); LYMPHOCYTES ABSOLUTE AUTO 1.53 K/mm3 (0.84-5.20); LYMPHOCYTES PERCENT AUTO 20 % (21-46); MONOCYTES ABSOLUTE AUTO 0.54 K/mm3 (0.16-1.47); MONOCYTES PERCENT AUTO 7 % (4-13); Mean Corpuscular HGB 27.4 pg (26.0-34.0); Mean Corpuscular HGB Conc 31.3 g/dL (31.5-36.5); Mean Corpuscular Volume 88 fL (80-100); Mean Platelet Volume 8.6 fL (9.1-12.4); NEUTROPHILS ABSOLUTE AUTO 5.22 K/mm3 (1.96-9.15); NEUTROPHILS PERCENT AUTO 69 % (41-73); Platelet Count 482 K/mm3 (150-400); RDW Coefficient Variation 14.4 % (11.7-14.2); RDW Standard Deviation 46.1 fL (35.1-46.3); Red Blood Cell Count 3.83 M/mm3 (4.30-5.90); White Blood Cell Count 7.61 K/mm3 (4.00-11.30)
[2023-12-22 05:39] LABS: Albumin, Blood 2.3 g/dL (3.4-5.0); Albumin/Globulin Ratio 0.5 (0.8-1.8); Bilirubin, Total 0.2 mg/dL (0.1-1.0); Bun/Creatinine Ratio 24.6 (12.0-20.0); C-REACTIVE PROTEIN, EXT RANGE 5.56 mg/dL (0.000-0.300); Calcium, Blood 8.9 mg/dL (8.5-10.1); Creatinine, Blood 0.73 mg/dL (0.60-1.20); Globulin, Blood 4.7 g/dL (2.2-4.0); Potassium, Blood 4.7 mmol/L (3.5-5.5)
[2023-12-22 07:50] VITALS: BP 142/82
[2023-12-22 15:22] VITALS: BP 158/98
--- NOTE | 2023-12-22 18:10 | NUR ---
SHIFT SUMMARY PT AOX4, SBA/INDEPENDENT IN THE ROOM. UP TO THE CHAIR ALL AFTERNOON AND TOLERATING IT WELL. RA AND SATING >90. MEDICATED FOR PAIN PER THE EMAR. CALLS AND MAKES HIS NEEDS KNOWN. DRESSING TO THE R SHOULDER CHANGED THIS SHIFT. HE USES A FWW THAT IS HIS OWN AND IN THE ROOM. CALL LIGHT WITHIN REACH, BED LOCKED AND IN THE LOWEST POSITION. WILL REPORT TO ONCOMING NURSE.
[2023-12-22 19:40] VITALS: BP 148/86
[2023-12-23 04:50] VITALS: BP 158/82
--- NOTE | 2023-12-23 06:41 | NUR ---
Shift Summary Pt still has very painful R shoulder. He was up in the chair from 1200 to 2200. He was able to get some sleep tonight but woke up in pain. Pt states his pain has been bad for 2 days since he rolled on it. He is AOx4, 1 SBA to the BR, uses urinal independently. No acute changes, awaiting placement.
[2023-12-23 07:12] VITALS: BP 159/90
[2023-12-23] MEDS ORDERED: OxyCODONE HCL 5 MG TAB PO PRN (10:30)
--- NOTE | 2023-12-23 13:53 | NUR ---
Patient is sitting on a chair and is alert. He tells me his concerns about where he will live after his D/C. He states that he is homeless and has no healthy place to reside and is concerned that he will end up back in the hospital right away after D/C because he has no way to manage a clean and safe environment to heal from. He also talks at length about his "ministry" to the other homeless folks and shares his goals to lead others to [place] and mentor them in the anabelle. He shares about those who have while living on the streets and those who have turned away from the anabelle back to drugs, alcohol and criminal activities. I provided prayer and emotional support. PAtient reposnded well and showed signs of being encouraged in his anabelle.
[2023-12-23 16:05] VITALS: BP 151/89
--- NOTE | 2023-12-23 16:27 | NUR ---
SHIFT SUMMARY: PATIENT A/OX4, PLEASANT AND COOPERATIVE c CARE. PATIENT DRESSING TO R SHOULDER C/D/I, CONTINUES TO REPORTS PAIN TO SITE, MEDICATED c PO 15 MG OXYCODONE c MOD EFFECT. PATIENT UP IN THE CHAIR FOR ABOUT 6 HRS, GREAT APPETITE, CONTINENT OF BOWEL/BLADDER, AMBULATES TO BATHROOM c SBA/FWW T/O SHIFT. PATIENT RECEIVED SCHEDULED MEDS PER EMAR, VITAL SIGNS REVIEWED. CALL LIGHT IN REACH.
[2023-12-23 19:32] VITALS: BP 150/110
[2023-12-24 03:29] VITALS: BP 163/86
[2023-12-24 05:58] LABS: BASOPHILS ABSOLUTE AUTO 0.09 K/mm3 (0.00-0.23); BASOPHILS PERCENT AUTO 1 % (0-2); EOSINOPHILS ABSOLUTE AUTO 0.17 K/mm3 (0.00-0.68); EOSINOPHILS PERCENT AUTO 2 % (0-6); Hematocrit 31.5 % (37.0-53.0); IMMATURE GRAN ABSOLUTE AUTO 0.03 K/mm3 (0.00-0.10); IMMATURE GRAN PERCENT AUTO 0 % (0-1); LYMPHOCYTES ABSOLUTE AUTO 1.42 K/mm3 (0.84-5.20); LYMPHOCYTES PERCENT AUTO 20 % (21-46); MONOCYTES ABSOLUTE AUTO 0.62 K/mm3 (0.16-1.47); MONOCYTES PERCENT AUTO 9 % (4-13); Mean Corpuscular HGB 27.5 pg (26.0-34.0); Mean Corpuscular HGB Conc 31.7 g/dL (31.5-36.5); Mean Corpuscular Volume 87 fL (80-100); Mean Platelet Volume 8.6 fL (9.1-12.4); NEUTROPHILS PERCENT AUTO 67 % (41-73); Platelet Count 368 K/mm3 (150-400); RDW Coefficient Variation 14.5 % (11.7-14.2); RDW Standard Deviation 46.3 fL (35.1-46.3); Red Blood Cell Count 3.64 M/mm3 (4.30-5.90); White Blood Cell Count 7.03 K/mm3 (4.00-11.30)
--- NOTE | 2023-12-24 06:05 | NUR ---
Shift Summary Pt was able to sleep better than last night, pain appeared better managed although he still feels it is inadequate. Painful R shoulder which is worse with movement. Pt is hypertensive and tachycardic which seems to be his BL since he's been here. He is AOx4, indepenent in the room, pleasant and cooperative with care. He did state 3 BM's yesterday, 2 of them somewhat loose, and a loose BM this AM.
[2023-12-24 06:25] VITALS: BP 178/93
[2023-12-24 06:26] LABS: Albumin, Blood 2.4 g/dL (3.4-5.0); Albumin/Globulin Ratio 0.5 (0.8-1.8); Bilirubin, Total 0.2 mg/dL (0.1-1.0); Bun/Creatinine Ratio 21.5 (12.0-20.0); Calcium, Blood 8.8 mg/dL (8.5-10.1); Creatinine, Blood 0.79 mg/dL (0.60-1.20); Globulin, Blood 4.5 g/dL (2.2-4.0); Potassium, Blood 4.3 mmol/L (3.5-5.5); Total Protein, Blood 6.9 g/dL (6.4-8.2)
[2023-12-24 07:26] VITALS: BP 135/84
[2023-12-24] MEDS ORDERED: Insulin Glargine-Yfgn 100 Unit/mL 3 ML SYR SC SCH ×2 (09:00→18:00)
[2023-12-24 15:08] VITALS: BP 145/95
--- NOTE | 2023-12-24 18:13 | NUR ---
SHIFT SUMMARY PATIENT ALERT AND INTERACTIVE. PATIENT VERY TALKATIVE. PATIENT ABLE TO AMBULATE WITH STAND BY ASSIST. PATIENT ENCOURAGED TO USE WALKER. PATIENT TO TRANSFER TO A FACILITY IN [place] FOR EXTENDED ANTIBIOTIC IV THERAPY TOMORROW. CONTINUES TO HAVE PAIN IN R SHOULDER EVEN WITH PAIN MEDICATION.
[2023-12-24 19:26] VITALS: BP 136/81
[2023-12-25 02:00] VITALS: BP 146/76
--- NOTE | 2023-12-25 04:50 | NUR ---
SHIFT SUMMARY PT IS A&O X4, COOP WITH CARE. PT DID NOT SLEEP OR NAP DURING THIS SHIFT. C/O 8/10WORST RIGHT SHOULDER PAIN, OXYCODONE 15MG ADMINISTERED ORDERED TWICE DURING THIS SHIFT. PT HAS PACKED ALL HIS BELONGINGS HE IS POSSIBLY DISCHARGING TODAY FROM THE HOSPITAL. NO OTHER COMPLAINTS/EVENTS DURING THIS SHIFT, CALL LIGHT IN REACH, BED AT THE LOWEST POSITION. WILL HANDOFF TO THE INCOMING SHIFT NURSE.
[2023-12-25 06:23] LABS: BASOPHILS ABSOLUTE AUTO 0.07 K/mm3 (0.00-0.23); BASOPHILS PERCENT AUTO 1 % (0-2); EOSINOPHILS ABSOLUTE AUTO 0.22 K/mm3 (0.00-0.68); EOSINOPHILS PERCENT AUTO 3 % (0-6); Hematocrit 29.6 % (37.0-53.0); Hemoglobin 9.3 g/dL (13.5-17.5); IMMATURE GRAN ABSOLUTE AUTO 0.04 K/mm3 (0.00-0.10); IMMATURE GRAN PERCENT AUTO 1 % (0-1); LYMPHOCYTES ABSOLUTE AUTO 1.48 K/mm3 (0.84-5.20); LYMPHOCYTES PERCENT AUTO 21 % (21-46); MONOCYTES ABSOLUTE AUTO 0.63 K/mm3 (0.16-1.47); MONOCYTES PERCENT AUTO 9 % (4-13); Mean Corpuscular HGB 27.3 pg (26.0-34.0); Mean Corpuscular HGB Conc 31.4 g/dL (31.5-36.5); Mean Corpuscular Volume 87 fL (80-100); Mean Platelet Volume 8.5 fL (9.1-12.4); NEUTROPHILS ABSOLUTE AUTO 4.76 K/mm3 (1.96-9.15); NEUTROPHILS PERCENT AUTO 66 % (41-73); Platelet Count 355 K/mm3 (150-400); RDW Coefficient Variation 14.6 % (11.7-14.2); RDW Standard Deviation 46.7 fL (35.1-46.3); Red Blood Cell Count 3.41 M/mm3 (4.30-5.90)
[2023-12-25 07:02] LABS: Albumin, Blood 2.2 g/dL (3.4-5.0); Albumin/Globulin Ratio 0.5 (0.8-1.8); Bilirubin, Total 0.2 mg/dL (0.1-1.0); Bun/Creatinine Ratio 17.7 (12.0-20.0); Calcium, Blood 8.3 mg/dL (8.5-10.1); Creatinine, Blood 0.79 mg/dL (0.60-1.20); Globulin, Blood 4.3 g/dL (2.2-4.0); Potassium, Blood 4.3 mmol/L (3.5-5.5); Total Protein, Blood 6.5 g/dL (6.4-8.2)
[2023-12-25 07:34] VITALS: BP 133/85
[2023-12-25] MEDS ORDERED: ATOR40TA PO (12:44)
[2023-12-25] MEDS ORDERED: ROXYBOND5 MG PO (12:46)
[2023-12-25] MEDS ORDERED: POTCHL20ER PO (12:46)
--- NOTE | 2023-12-25 16:00 | NUR ---
SHIFT SUMMARY AND DISCHARGE PATIENT ALERT AND INTERACTIVE. PATIENT ABLE TO AMBULATE TO BR WITH MINIMAL ASSIST. PATIENT USING URINAL IN BED. PATIENT VERY TALKATIVE. PATIENT CONTINUES TO HAVE R SHOULDER PAIN. SUTURES REMOVED, STERI STRIPS APPLIED AND COVERED WITH DRY DRESSING. REPORT CALLED TO [facility] AND GIVEN TO THERESA. PATIENT TRANSFERED VIA WHEELCHAIR TRANSPORT FOR CONTINUED ANTIBIOTIC THERAPY. BELONGINGS SENT WITH PATIENT. POWER GLIDE LEFT IN FOR ANTIBIOTIC THERAPY. PATIENT MEDICATED FOR PAIN AND 1600 ANTIBIOTICS TRANSFUSED BEFORE TRANSPORT.
== END 2023-12-25 16:30 | DRG 853 ==
LOC: ER 11:49 → ICUE 11:50 → MEDS 12-07 14:01 → ICUE 12-07 14:01 → MEDS 12-08 18:05
PROVIDERS: Emergency Medicine; Family Medicine; Internal Medicine; Orthopaedic Surgery; ADMIT Internal Medicine
PROC: 3E03329 Introduction of Other Anti-infective into Peripheral Vein, Percutaneous Approach (ICD-10-PCS; 2023-12-06)
PROC: 0KD50ZZ Extraction of Right Shoulder Muscle, Open Approach (ICD-10-PCS; principal; 2023-12-13 16:00)
DX: A41.9 Sepsis, unspecified organism (principal); E10.10 Type 1 diabetes mellitus with ketoacidosis without coma; M00.011 Staphylococcal arthritis, right shoulder; Z59.00 Homelessness unspecified; K50.90 Crohn's disease, unspecified, without complications; B95.62 Methicillin resistant Staphylococcus aureus infection as the cause of diseases classified elsewhere; Z66 Do not resuscitate; K02.9 Dental caries, unspecified; E78.00 Pure hypercholesterolemia, unspecified; E78.5 Hyperlipidemia, unspecified; I10 Essential (primary) hypertension; E86.0 Dehydration; E10.42 Type 1 diabetes mellitus with diabetic polyneuropathy; Z79.4 Long term (current) use of insulin; Z79.899 Other long term (current) drug therapy; Z79.84 Long term (current) use of oral hypoglycemic drugs; Z87.891 Personal history of nicotine dependence; Z88.5 Allergy status to narcotic agent; Z91.038 Other insect allergy status
CPT/HCPCS: 36415; 73030; 73201; 80048; 80053; 80069; 80202; 81001; 82010; 82330; 82803; 82947; 83036; 83690; 83735; 84145; 84484; 85025; 85651; 86140; 87040; 87070; 87075; 87077; 87086; 87147; 87186; 87205; 93005; 93010; 93306; 93312; 93325; 94760; 96361; 96372; 96374; 96375; 96376; 97110; 97116; 97162; 97165; 97530; 97535; 99285-25; A9270; C1751; G0378; J0171; J0330; J0360; J0712; J0878; J1170; J1650; J1815; J1885; J2250; J2310; J2405; J2704; J3010; J3370; J3480; J7030; J7042; J7050; J7060; Q9967

== ENCOUNTER 2024-04-23 11:14 | Emergency (ER) | payer OTHER ==
[~2024-04-23] VITALS: Ht 170.2 cm; Wt 81.7 kg
[~2024-04-23 11:14] MED LIST changes: +ATOR40TA PO; +Amlodipine Bes2.5 MG PO; +GABAPENTIN ER600 MG PO; +MELO7.5 PO; +POTCHL20ER PO; +PROAIR RESPICL90 MCG INH; +ROXYBOND5 MG PO; +TIZANIDINE HCL213 PO
[2024-04-23 11:59] LABS: BASOPHILS ABSOLUTE AUTO 0.03 K/mm3 (0.00-0.23); BASOPHILS PERCENT AUTO 0 % (0-2); EOSINOPHILS ABSOLUTE AUTO 0.11 K/mm3 (0.00-0.68); EOSINOPHILS PERCENT AUTO 2 % (0-6); Hematocrit 45.9 % (37.0-53.0); Hemoglobin 15.3 g/dL (13.5-17.5); IMMATURE GRAN ABSOLUTE AUTO 0.03 K/mm3 (0.00-0.10); IMMATURE GRAN PERCENT AUTO 0 % (0-1); LYMPHOCYTES ABSOLUTE AUTO 1.69 K/mm3 (0.84-5.20); LYMPHOCYTES PERCENT AUTO 25 % (21-46); MONOCYTES ABSOLUTE AUTO 0.42 K/mm3 (0.16-1.47); MONOCYTES PERCENT AUTO 6 % (4-13); Mean Corpuscular HGB 26.7 pg (26.0-34.0); Mean Corpuscular HGB Conc 33.3 g/dL (31.5-36.5); Mean Corpuscular Volume 80 fL (80-100); Mean Platelet Volume 9.7 fL (9.1-12.4); NEUTROPHILS ABSOLUTE AUTO 4.56 K/mm3 (1.96-9.15); NEUTROPHILS PERCENT AUTO 67 % (41-73); Platelet Count 223 K/mm3 (150-400); RDW Coefficient Variation 16.4 % (11.7-14.2); RDW Standard Deviation 47.8 fL (35.1-46.3); Red Blood Cell Count 5.73 M/mm3 (4.30-5.90); White Blood Cell Count 6.84 K/mm3 (4.00-11.30)
[2024-04-23 12:19] LABS: Albumin, Blood 3.6 g/dL (3.4-5.0); Albumin/Globulin Ratio 1.1 (0.8-1.8); Bilirubin, Total 0.3 mg/dL (0.1-1.0); Bun/Creatinine Ratio 24.2 (12.0-20.0); Creatinine, Blood 0.7 mg/dL (0.60-1.20); Globulin, Blood 3.4 g/dL (2.2-4.0); Potassium, Blood 4.1 mmol/L (3.5-5.5)
[2024-04-23] MEDS ORDERED: AMLODIPINE BESYL5 MG PO (15:51)
[2024-04-23] MEDS ORDERED: GABAPENTIN600 MG PO (15:52)
[2024-04-23 17:30] VITALS: BP 137/81
== END 2024-04-23 18:55 | disposition home or self-care (01) ==
LOC: ER 11:14
PROVIDERS: Physician Assistant
DX: R53.1 Weakness (principal); R63.8 Other symptoms and signs concerning food and fluid intake; E10.9 Type 1 diabetes mellitus without complications; Z87.891 Personal history of nicotine dependence; Z79.4 Long term (current) use of insulin; Z79.899 Other long term (current) drug therapy; Z88.5 Allergy status to narcotic agent; Z91.030 Bee allergy status
CPT/HCPCS: 71046; 80053; 84484; 85025; 93005; 93010; 99285-25